=== PATIENT | female | born 1945 | race Caucasian/White ===

== ENCOUNTER 2017-07-07 10:56 | Outpatient (CLI) | payer MEDICARE, OTHER ==
--- NOTE | 2017-07-07 17:47 | XRAY Report ---
TWO-VIEW LEFT KNEE: 07/07/2017 CLINICAL INDICATION: Pain. FINDINGS: Frontal and lateral views of the left knee demonstrate mild osteoarthritis. There is no e vidence of acute fracture. No radiopaque foreign body is seen in the soft tissues. IMPRESSION: MILD OSTEOARTHRITIS. JOB #: [id number] EXT JOB #:[id number]
== END 2017-07-07 10:57 | disposition home or self-care (01) ==
LOC: DI 10:56
PROVIDERS: ATTEND Family Medicine
DX: M25.562 Pain in left knee (principal); M17.12 Unilateral primary osteoarthritis, left knee

== ENCOUNTER 2017-11-16 08:00 | Outpatient (CLI) | payer MEDICARE, OTHER ==
[2017-11-16 18:59] LABS: BASOPHILS # (AUTO) 0.1 10^3/uL (0.0-0.1); BASOPHILS % (AUTO) 1.2 %; EOSINOPHILS # (AUTO) 0.3 10^3/uL (0.0-0.7); HGB - HEMOGLOBIN 14.3 g/dL (12.0-16.0); LYMPHOCYTES # (AUTO) 2.1 10^3/uL (1.5-3.5); LYMPHOCYTES % (AUTO) 32.6 %; MEAN CORPUSCULAR HEMOGLOBIN 30.8 pg (27.0-31.0); MEAN CORPUSCULAR HGB CONC 32.5 g/dL (32.0-36.0); MEAN CORPUSCULAR VOLUME 94.7 fL (81.0-99.0); MEAN PLATELET VOLUME 8.2 fL (7.9-10.8); MONOCYTES # (AUTO) 0.7 10^3/uL (0.0-1.0); MONOCYTES % (AUTO) 10.9 %; NEUTROPHILS # (AUTO) 3.2 10^3/uL (1.5-6.6); NEUTROPHILS % (AUTO) 50.3 %; PLT - PLATELET COUNT 278 10^3/uL (130-450); RED BLOOD COUNT 4.66 10^6/uL (4.20-5.40); RED CELL DISTRIBUTION WIDTH 13.6 % (12.0-15.0); WHITE BLOOD COUNT 6.4 x10^3/uL (4.8-10.8)
[2017-11-16 19:08] LABS: ALBUMIN 4.3 g/dL (3.2-5.5); ALBUMIN/GLOBULIN RATIO 1.3 (1.0-2.2); ALKALINE PHOSPHATASE 61 IU/L (42-121); ALT ALANINE AMINOTRANSFERASE 15 IU/L (10-60); AST ASPARTATE AMINOTRANSFERASE 18 IU/L (10-42); BILIRUBIN,TOTAL 0.5 mg/dL (0.2-1.0); BUN - BLOOD UREA NITROGEN 26 mg/dL (6-20); CALCIUM 9.6 mg/dL (8.5-10.3); CARBON DIOXIDE - CO2 26 mmol/L (21-32); CHLORIDE 103 mmol/L (101-111); CREATININE 0.8 mg/dL (0.4-1.0); GFR - MDRD 70 (>89); GLUCOSE 83 mg/dL (70-100); SODIUM 138 mmol/L (135-145); TOTAL PROTEIN 7.5 g/dL (6.7-8.2)
== END 2017-11-16 08:01 | disposition home or self-care (01) ==
LOC: LAB.WCP 08:00
PROVIDERS: ATTEND Family Medicine
DX: R56.9 Unspecified convulsions (principal); I10 Essential (primary) hypertension
CPT/HCPCS: 36415; 80053; 84443; 85025

== ENCOUNTER 2019-08-10 13:42 | Outpatient (CLI) | payer MEDICARE, OTHER | END 2019-08-10 13:43 | disposition critical access hospital (66) | LOC: EMS 13:42 | PROVIDERS: ATTEND Surgery | DX: R53.1 Weakness (principal); R10.30 Lower abdominal pain, unspecified | CPT/HCPCS: A0425; A0429 ==

== ENCOUNTER 2019-08-10 14:01 | Emergency (ER) | payer MEDICARE, OTHER ==
[2019-08-10 14:37] LABS: BASOPHILS # (AUTO) 0.1 10^3/uL (0.0-0.1); BASOPHILS % (AUTO) 0.5 %; EOSINOPHILS # (AUTO) 0.2 10^3/uL (0.0-0.7); EOSINOPHILS % (AUTO) 1.6 %; HGB - HEMOGLOBIN 13.4 g/dL (12.0-16.0); LYMPHOCYTES # (AUTO) 1.1 10^3/uL (1.5-3.5); LYMPHOCYTES % (AUTO) 10.1 %; MEAN CORPUSCULAR HEMOGLOBIN 30.9 pg (27.0-31.0); MEAN CORPUSCULAR HGB CONC 33.1 g/dL (32.0-36.0); MEAN CORPUSCULAR VOLUME 93.3 fL (81.0-99.0); MONOCYTES # (AUTO) 1.2 10^3/uL (0.0-1.0); MONOCYTES % (AUTO) 10.9 %; NEUTROPHILS # (AUTO) 8.1 10^3/uL (1.5-6.6); NEUTROPHILS % (AUTO) 76.2 %; PLT - PLATELET COUNT 365 10^3/uL (130-450); RED BLOOD COUNT 4.34 10^6/uL (4.20-5.40); WHITE BLOOD COUNT 10.7 x10^3/uL (4.8-10.8)
[2019-08-10 14:41] LABS: ALBUMIN 3.2 g/dL (3.2-5.5); ALBUMIN/GLOBULIN RATIO 0.9 (1.0-2.2); CREATININE 0.8 mg/dL (0.4-1.0); TOTAL PROTEIN 6.8 g/dL (6.7-8.2)
[2019-08-10] MEDS ORDERED: SODIUM CHLORIDE 0.9% 1,000 ML IV ONE ×2 (14:55→19:42)
[2019-08-10] MEDS ORDERED: LORazepam 2 MG/ML VIAL IVP STA (14:55)
[2019-08-10] MEDS ORDERED: IOVERSOL 320 100 ML VIAL IVP ONE ×2 (14:59→15:32)
--- NOTE | 2019-08-10 15:59 | CT Report ---
Reason: RLQ abd pain Procedure Date: 08/10/2019 Accession Number: [id number] / [id number] Procedure: CT - Abdomen/Pelvis W CPT Code: FULL RESULT: EXAM: CT ABDOMEN AND PELVIS EXAM DATE: 08/10/2019 03:28 PM. CLINICAL HISTORY: RLQ abd pain. COMPARISONS: None. TECHNIQUE: Routine helical CT imaging was performed through the abdomen and pelvis. IV contrast: OPTI 320 90ML. Enteric contrast: No. Reconstructions: Coronal and sagittal. In accordance with CT protocol optimization, one or more of the following dose reduction techniques were utilized for this exam: automated exposure control, adjustment of mA and/or KV based on patient size, or use of iterative reconstructive technique. FINDINGS: Lung Bases: Unremarkable. Liver: Normal. No masses. Gallbladder/Bile Ducts: Unremarkable. Spleen: Normal. Pancreas: Normal. Adrenal Glands: Normal. Kidneys: There is a 1.6 cm cystic structure in the posterior cortex of left kidney likely to represent a simple cyst. No hydronephrosis. Peritoneal Cavity/Bowel: Diverticulitis of the sigmoid colon with contained perforation and abscess adjacent to the mid sigmoid colon just posterior to the uterus measuring at least 4.9 x 6.9 cm. The appendix is not visualized. Pelvic Organs: Normal. The bladder and visualized pelvic organs are within normal limits. Vasculature: No aneurysms or other significant abnormality. Bones: No significant abnormality. Other: None. IMPRESSION: Diverticulitis of the sigmoid colon with adjacent abscess measuring 6.9 x 4.9 cm. RADIA The critical result notification system was initiated by Dr. Angela Gutierrez at 03:55 PM on 08/10/2019. The above critical result findings were discussed with Richard Partida by Dr. Angela Gutierrez at 03:56 PM on 08/10/2019.
[2019-08-10] MEDS ORDERED: PIPERACILLIN/TAZOBACTAM 3.375 GM in SODIUM CHLORIDE 0.9% MINIBAG 100 ML IV STA (16:00)
[2019-08-10] MEDS ORDERED: metroNIDAZOLE 500 MG/100 ML 500 MG/100 ML BAG IV ONE (16:01)
[2019-08-10 16:17] LABS: BILIRUBIN,URINE NEGATIVE (NEGATIVE); GLUCOSE, URINE (UA) NEGATIVE (NEGATIVE); KETONES,URINE (UA) NEGATIVE (NEGATIVE); LEUKOCYTE ESTERASE, URINE NEGATIVE (NEGATIVE); NITRITE,URINE NEGATIVE (NEGATIVE); OCCULT BLOOD,URINE MODERATE (NEGATIVE); PROTEIN,URINE NEGATIVE (NEGATIVE); UROBILINOGEN,URINE 0.2 (NORMAL) E.U./dL (NORMAL)
[2019-08-10 16:20] LABS: CLARITY,URINE HAZY (CLEAR)
[2019-08-10 16:24] LABS: BACTERIA,URINE Rare /HPF (None Seen); MUCUS,URINE Few Strands; RBC,URINE 0-5 /HPF (0-5); SQUAMOUS EPITHELIAL CELL,UR RARE Squamous (<= Few)
[2019-08-10] MEDS ORDERED: MORPHINE 2 MG/ML CARPUJECT IVP STA ×2 (17:33→21:32)
--- NOTE | 2019-08-10 18:07 | ED Physician Documentation ---
PD HPI ABD PAIN - Stated complaint Stated Complaint: ABD PX - Chief complaint Chief Complaint: Abd Pain - History obtained from History obtained from: Patient - History of Present Illness Timing - onset: How many weeks ago (2) Timing - duration: Weeks (2) Timing - details: Gradual onset Pain level max: 10 Pain level now: 6 Quality: Aching, Pain Location: Other (lower abdomen) Radiation: Other (non-radiating) Improved by: Laying still Worsened by: Moving, Palpation Associated symptoms: Nausea, Constipation. No: Fever, Vomiting, Hematemesis, Diarrhea, Melena, Hematochezia, Dysuria, Hematuria, Chest pain Similar symptoms before: Has not had sx before Recently seen: Not recently seen (has not seen a doctor for years) Review of Systems Ten Systems: 10 systems reviewed and negative Constitutional: denies: Fever, Chills Ears: denies: Ear pain Nose: denies: Rhinorrhea / runny nose, Congestion Throat: denies: Sore throat Cardiac: denies: Chest pain / pressure Respiratory: denies: Cough : denies: Dysuria, Frequency, Hesitancy Skin: denies: Rash Musculoskeletal: denies: Neck pain, Back pain PD PAST MEDICAL HISTORY - Past Medical History Past Medical History: Yes Cardiovascular: CT - Past Surgical History 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, 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 - Present Medications Home Medications: Ambulatory Orders Medication Instructions Recorded Confirmed Ibuprofen 600 mg PO Q6H PRN #30 tablet 04/19/14 - Allergies Allergies/Adverse Reactions: Allergies Allergy/AdvReac Type Severity Reaction Status Date / Time No Known Drug Allergies Allergy Verified 08/10/19 14:09 - Social History Does the pt smoke?: No Smoking Status: Never smoker Does the pt drink ETOH?: No Does the pt have substance abuse?: No - Immunizations Immunizations are current?: No - POLST Patient has POLST: No PD ED PE NORMAL - Vitals Vital signs reviewed: Yes - General General: Alert and oriented X 3, No acute distress, Well developed/nourished - HEENT HEENT: PERRL, Moist mucous membranes - Neck Neck: Supple, no meningeal sign - Cardiac Cardiac: RRR, Strong equal pulses - Respiratory Respiratory: No respiratory distress, Clear bilaterally - Abdomen Abdomen: Soft, Non distended, Other (Diffusely tender to palpation across the lower abdomen. Positive rebound and guarding in the right lower quadrant) - Back Back: No spinal TTP - Derm Derm: Warm and dry - Extremities Extremities: No edema - Neuro Neuro: Alert and oriented X 3 - Psych Psych: Normal mood, Normal affect Results - Vitals Vitals: Vital Signs - 24 hr 08/10/19 08/10/19 08/10/19 14:02 14:15 16:09 Temperature 36.5 C Heart Rate 88 94 87 Respiratory 14 14 Rate Blood Pressure 157/92 H 160/81 H O2 Saturation 97 93 97 08/10/19 08/10/19 08/10/19 18:00 20:12 20:56 Temperature 36.9 C Heart Rate 85 85 83 Respiratory 24 16 Rate Blood Pressure 134/69 H 131/65 H 146/78 H O2 Saturation 97 96 93 08/10/19 21:56 Temperature Heart Rate 86 Respiratory 16 Rate Blood Pressure 128/89 H O2 Saturation 94 Oxygen O2 Source Room air - Labs Labs: Laboratory Tests 08/10/19 08/10/19 08/10/19 14:23 14:23 16:00 WBC 10.7 RBC 4.34 Hgb 13.4 Hct 40.5 MCV 93.3 MCH 30.9 MCHC 33.1 RDW 12.0 Plt Count 365 MPV 9.0 Neut # (Auto) 8.1 H Lymph # (Auto) 1.1 L [place] # (Auto) 1.2 H Eos # (Auto) 0.2 Baso # (Auto) 0.1 Absolute Nucleated RBC 0.00 Nucleated RBC % 0.0 Sodium 139 Potassium 3.2 L Chloride 103 Carbon Dioxide 26 Anion Gap 10.0 BUN 12 Creatinine 0.8 Estimated GFR (MDRD) 70 L Glucose 120 H Calcium 9.0 Total Bilirubin 1.0 AST 21 ALT 23 Alkaline Phosphatase 60 Total Protein 6.8 Albumin 3.2 Globulin 3.6 Albumin/Globulin Ratio 0.9 L Lipase 27 Urine Color YELLOW Urine Clarity HAZY Urine pH 7.0 Ur Specific [place] <=1.005 Urine Protein NEGATIVE Urine Glucose (UA) NEGATIVE Urine Ketones NEGATIVE Urine Occult Blood MODERATE H Urine Nitrite NEGATIVE Urine Bilirubin NEGATIVE Urine Urobilinogen 0.2 (NORMAL) Ur Leukocyte Esterase NEGATIVE Urine RBC 0-5 Urine WBC 4-5 Ur Squamous Epith Cells RARE Squamous Urine Bacteria Rare Urine Casts 3-5 Granular Casts Urine Mucus Few Strands Ur Microscopic Review INDICATED Urine Culture Comments NOT INDICATED - Rads (name of study) CT abd/pelvis Radiology: Prelim report reviewed, EMP read contemporaneously, See rad report (Diverticulitis of the sigmoid colon with adjacent abscess measuring 6.9 x 4.9 cm. ) PD MEDICAL DECISION MAKING - ED course Complexity details: reviewed results, re-evaluated patient, considered differential, d/w patient, d/w family ED course: 74-year-old female presents to the emergency department with perforated diverticulitis with an intra-abdominal abscess. Discussed the case with Dr. Medley and Dr. Jones, they recommend transfer to a facility who can perform IR drainage of this transrectally. Consulted Dr. Gonzalez from [facility] in [place], they do not have this capability. Spoke with Dr. Shelby Quick, general surgery at [facility] who graciously accepts in transfer at 1900. Patient was maintained on Zosyn and Flagyl. COBRA forms completed This document was made in part using voice recognition software. While efforts are made to proofread this document, sound alike and grammatical errors may occur. Departure - Departure Disposition: 02 Transfer Acute Care Hosp Clinical Impression: Abscess of sigmoid colon due to diverticulitis Condition: Stable
[2019-08-10 21:57] VITALS: BP 128/89
== END 2019-08-10 22:02 | disposition short-term general hospital (02) ==
LOC: ED 14:01
DX: K57.20 Diverticulitis of large intestine with perforation and abscess without bleeding (principal)
CPT/HCPCS: 36415; 74177; 80053; 81001; 83690; 85025; 96361; 96365; 96367; 96375; 96376; 99285; J2060; Q9967; 81003; 87086

== ENCOUNTER 2019-08-25 11:37 | Outpatient (CLI) | payer MEDICARE, OTHER ==
[2019-08-25] MEDS ORDERED: IOVERSOL 320 50 ML VIAL ONE (12:23)
[2019-08-25] MEDS ORDERED: IOVERSOL 320 100 ML VIAL IVP ONE ×2 (12:23→13:20)
[2019-08-25] MEDS ORDERED: IOVERSOL 320 50 ML VIAL PO ONE (13:20)
--- NOTE | 2019-08-26 15:01 | CT Report ---
Reason: COLONIC DIVERTICULAR ABSCESS Procedure Date: 08/25/2019 Accession Number: [id number] / [id number] Procedure: CT - Abdomen/Pelvis W CPT Code: Final Report FULL RESULT: EXAM: CT ABDOMEN AND PELVIS EXAM DATE: 08/25/2019 01:18 PM. CLINICAL HISTORY: Reassess colonic diverticular abscess. COMPARISONS: CT of the abdomen and pelvis from 08/10/2019. TECHNIQUE: Routine helical CT imaging was performed through the abdomen and pelvis. IV contrast: 90 cc Optiray 320. Enteric contrast: Yes. Reconstructions: Coronal and sagittal. In accordance with CT protocol optimization, one or more of the following dose reduction techniques were utilized for this exam: automated exposure control, adjustment of mA and/or KV based on patient size, or use of iterative reconstructive technique. FINDINGS: Lung Bases: The visualized portions of the lung bases are clear. There is a small hiatal hernia. Liver: There is focal fat deposition along the fissure for the ligamentum teres. Otherwise unremarkable. Gallbladder/Bile Ducts: There is a 10 mm ovoid density in the gallbladder (series 3, image 29), which may represent a stone or polyp. Caliber of the bile ducts is within normal limits. Spleen: Unremarkable. Pancreas: Unremarkable. Adrenal Glands: No nodules. Kidneys: A cyst is present in the lower pole of the left kidney (series 3, image 33). No hydronephrosis. Peritoneal Cavity/Bowel: Anterior to the distal sigmoid colon/high rectum, there is a collection of fluid and gas measuring approximately 2.6 x 1.6 x 3.8 cm (series 3, image 63 and series 6, image 42). This is significantly decreased in size from dimensions of 6.9 x 4.9 x 5.2 cm on the prior examination. There is mild haziness of the surrounding fat. There is scattered colonic diverticulosis, greatest in the sigmoid colon. No evidence of bowel obstruction. Pelvic Organs: Perirectal/pericolonic abscess, as described above. Urinary bladder is unremarkable. Uterus is within normal limits. There appears to be a small amount of nonspecific fluid adjacent to the right ovary (series 3, images 58-62). No pelvic adenopathy. Vasculature: There is moderate atherosclerotic calcification of the abdominal aorta. No abdominal aortic aneurysm. Atherosclerotic calcification extends into bilateral iliac arteries. 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 Bones: No suspicious osseous lesion. There are multilevel degenerative changes in the spine with grade 1 anterolisthesis at L5-S1. Other: None. IMPRESSION: 1. Significantly decreased size of abscess anterior to the distal sigmoid colon/high rectum, now measuring 3.8 cm. Mild surrounding fat stranding is demonstrated, suggesting mild ongoing inflammation. 2. 10 mm gallstone versus gallbladder polyp. Follow-up with abdominal ultrasound is recommended. RADIA
== END 2019-08-25 11:38 | disposition home or self-care (01) ==
LOC: DI 11:37
PROVIDERS: ATTEND Nurse Practitioner Acute Care
DX: K57.20 Diverticulitis of large intestine with perforation and abscess without bleeding (principal); K82.9 Disease of gallbladder, unspecified
CPT/HCPCS: 74177; Q9967

== ENCOUNTER 2019-09-13 10:57 | Outpatient (CLI) | payer MEDICARE, OTHER ==
[2019-09-13] MEDS ORDERED: IOVERSOL 320 50 ML VIAL ONE (11:09)
[2019-09-13] MEDS ORDERED: IOVERSOL 320 100 ML VIAL IVP ONE ×2 (11:09→14:36)
[2019-09-13 11:28] LABS: BASOPHILS # (AUTO) 0.1 10^3/uL (0.0-0.1); BASOPHILS % (AUTO) 0.7 %; EOSINOPHILS # (AUTO) 0.1 10^3/uL (0.0-0.7); HGB - HEMOGLOBIN 12.9 g/dL (12.0-16.0); LYMPHOCYTES # (AUTO) 1.2 10^3/uL (1.5-3.5); LYMPHOCYTES % (AUTO) 13.7 %; MEAN CORPUSCULAR HEMOGLOBIN 30.1 pg (27.0-31.0); MEAN CORPUSCULAR HGB CONC 32.3 g/dL (32.0-36.0); MEAN CORPUSCULAR VOLUME 93.2 fL (81.0-99.0); MEAN PLATELET VOLUME 8.7 fL (7.9-10.8); MONOCYTES # (AUTO) 0.9 10^3/uL (0.0-1.0); MONOCYTES % (AUTO) 9.5 %; NEUTROPHILS # (AUTO) 6.7 10^3/uL (1.5-6.6); NEUTROPHILS % (AUTO) 74.7 %; PLT - PLATELET COUNT 343 10^3/uL (130-450); RED BLOOD COUNT 4.28 10^6/uL (4.20-5.40); RED CELL DISTRIBUTION WIDTH 13.8 % (12.0-15.0); WHITE BLOOD COUNT 8.9 x10^3/uL (4.8-10.8)
[2019-09-13 11:53] LABS: BILIRUBIN,TOTAL 0.4 mg/dL (0.2-1.0); CALCIUM 9.8 mg/dL (8.5-10.3); CREATININE 0.6 mg/dL (0.4-1.0)
[2019-09-13 11:54] LABS: ALBUMIN 3.8 g/dL (3.2-5.5); TOTAL PROTEIN 7.7 g/dL (6.7-8.2)
--- NOTE | 2019-09-13 13:37 | CT Report ---
Reason: COLONIC DIVERTICULAR ABSCESS, DIVERTICULITIS COLON Procedure Date: 09/13/2019 Accession Number: [id number] / [id number] Procedure: CT - Abdomen/Pelvis W CPT Code: Final Report FULL RESULT: EXAM: CT ABDOMEN AND PELVIS EXAM DATE: 09/13/2019 12:40 PM. CLINICAL HISTORY: COLONIC DIVERTICULAR ABSCESS, DIVERTICULITIS COLON. COMPARISONS: ABDOMEN/PELVIS W/ 08/25/2019 1:13 PM ABDOMEN/PELVIS W/ 08/10/2019 3:24 PM. TECHNIQUE: Routine helical CT imaging was performed through the abdomen and pelvis. IV contrast: OPTI 320 100ML. Enteric contrast: Yes. Reconstructions: Coronal and sagittal. In accordance with CT protocol optimization, one or more of the following dose reduction techniques were utilized for this exam: automated exposure control, adjustment of mA and/or KV based on patient size, or use of iterative reconstructive technique. FINDINGS: Lung Bases: Unremarkable. Liver: Stable appearance with no new mass or ductal dilation. Gallbladder/Bile Ducts: Stable appearance of the gallbladder, including approximate 10 mm ovoid density (image 28, series 4). No biliary ductal dilation. Spleen: Unremarkable. Pancreas: Unremarkable. Adrenal Glands: Unremarkable. Kidneys: Stable appearance with symmetric enhancement and no hydronephrosis. A few probable small cysts again noted. Peritoneal Cavity/Bowel: No bowel obstruction identified. Increased thickening throughout the sigmoid colon and rectum since the prior study with mild increased pericolonic inflammatory change. The previous small abscess anterior to the distal sigmoid colon/high rectum is less well delineated. No new drainable collection is visualized. Multiple colonic diverticula also again noted, including through the sigmoid region. No free air. No bulky adenopathy. Possible small hiatal hernia. Pelvic Organs: Urinary bladder is incompletely distended, although appears to be unremarkable. Uterus appears unremarkable. Small amount of fluid adjacent to the right ovary again noted. Vasculature: Stable. Bones: Stable. Other: None. IMPRESSION: 1. The previous small abscess located anterior to the distal sigmoid colon/high rectum is less well delineated and may be nearly resolved. No new drainable collection is visualized. 2. Increased colonic thickening and mild pericolonic inflammatory change throughout the rectosigmoid region since the prior study. 3. No bowel obstruction or free air identified. 4. Other findings again noted, as described above. RADIA The call report initiated by Dr. Manny Nelson at 01:35 PM on 09/13/2019.
[2019-09-13] MEDS ORDERED: IOVERSOL 320 50 ML VIAL PO ONE (14:36)
== END 2019-09-13 10:58 | disposition home or self-care (01) ==
LOC: DI 10:57
PROVIDERS: ATTEND Family Medicine
DX: K57.20 Diverticulitis of large intestine with perforation and abscess without bleeding (principal); K57.30 Diverticulosis of large intestine without perforation or abscess without bleeding
CPT/HCPCS: 36415; 74177; 80053; 85025; Q9967

== ENCOUNTER 2020-07-18 14:54 | Outpatient (CLI) | payer MEDICARE, OTHER ==
--- NOTE | 2020-07-18 16:32 | XRAY Report ---
PROCEDURE: Ribs w/PA Chest RT INDICATIONS: RIGHT SIDE RIB PAIN TECHNIQUE: 3 views of the right ribs were acquired, along with a single view chest. COMPARISON: 04/19/2014 FINDINGS: Surgical changes and devices: None. Bones and chest wall: The bones are diffusely osteopenic. No fractures or dislocations. No suspiciou s bony lesions. Overlying soft tissues appear unremarkable. Lungs and pleura: No pleural effusions or pneumothorax. Lungs appear clear. Mediastinum: Mediastinal contours appear normal. Heart size is normal. IMPRESSION: No evidence of displaced right rib fracture. No evidence of acute pulmonary process. Reviewed by: Ced Gruber MD on 07/18/2020 4:31 PM PDT Approved by: Ced Gruber MD on 07/18/2020 4:31 PM PDT Station ID: [id number]
[2020-07-18 18:33] LABS: ALBUMIN 4.3 g/dL (3.2-5.5); ALBUMIN/GLOBULIN RATIO 1.3 (1.0-2.2); BILIRUBIN,TOTAL 1.2 mg/dL (0.2-1.0); CALCIUM 9.6 mg/dL (8.5-10.3); CREATININE 0.7 mg/dL (0.4-1.0); TOTAL PROTEIN 7.5 g/dL (6.7-8.2)
[2020-07-18 18:35] LABS: BASOPHILS # (AUTO) 0.1 10^3/uL (0.0-0.1); BASOPHILS % (AUTO) 0.8 %; EOSINOPHILS # (AUTO) 0.3 10^3/uL (0.0-0.7); EOSINOPHILS % (AUTO) 4.6 %; HGB - HEMOGLOBIN 13.8 g/dL (12.0-16.0); LYMPHOCYTES # (AUTO) 1.7 10^3/uL (1.5-3.5); LYMPHOCYTES % (AUTO) 27.1 %; MEAN CORPUSCULAR HEMOGLOBIN 30.4 pg (27.0-31.0); MEAN CORPUSCULAR HGB CONC 32.2 g/dL (32.0-36.0); MEAN CORPUSCULAR VOLUME 94.3 fL (81.0-99.0); MEAN PLATELET VOLUME 9.6 fL (7.9-10.8); MONOCYTES # (AUTO) 0.5 10^3/uL (0.0-1.0); MONOCYTES % (AUTO) 8.9 %; NEUTROPHILS # (AUTO) 3.6 10^3/uL (1.5-6.6); NEUTROPHILS % (AUTO) 58.4 %; PLT - PLATELET COUNT 261 10^3/uL (130-450); RED BLOOD COUNT 4.54 10^6/uL (4.20-5.40); RED CELL DISTRIBUTION WIDTH 13.1 % (12.0-15.0); WHITE BLOOD COUNT 6.1 x10^3/uL (4.8-10.8)
== END 2020-07-18 14:55 | disposition home or self-care (01) ==
LOC: DI.WCP 14:54
PROVIDERS: ATTEND Family Medicine
DX: R07.81 Pleurodynia (principal); K62.5 Hemorrhage of anus and rectum
CPT/HCPCS: 36415; 80053; 85025

== ENCOUNTER 2022-07-31 08:00 | Outpatient (CLI) | payer MEDICARE, OTHER ==
[2022-07-31 13:04] LABS: AMYLASE 63 U/L (28-100); CHOL/HDL RATIO 3.2 (<4.4); CHOLESTEROL 247 mg/dL; HDL CHOLESTEROL 78 mg/dL; LDL CHOLESTEROL,CALCULATED 158 mg/dL; LIPASE 33 U/L (22-51); TRIGLYCERIDES 57 mg/dL; VLDL CHOLESTEROL 11 mg/dL
[2022-07-31 13:13] LABS: THYROID STIMULATING HORMONE 2.65 uIU/mL (0.34-5.60)
== END 2022-07-31 23:59 | disposition home or self-care (01) ==
LOC: LAB 08:00
PROVIDERS: ATTEND Nurse Practitioner
DX: E78.5 Hyperlipidemia, unspecified (principal); R10.31 Right lower quadrant pain; R06.02 Shortness of breath
CPT/HCPCS: 36415; 80061; 82150; 83690; 83721; 83880; 84443

== ENCOUNTER 2022-07-31 10:50 | Outpatient (CLI) | payer MEDICARE, OTHER | END 2022-07-31 10:51 | disposition critical access hospital (66) | LOC: EMS 10:50 | DX: R07.89 Other chest pain (principal) | CPT/HCPCS: A0425; A0429 ==

== ENCOUNTER 2022-07-31 11:27 | Emergency (ER) | payer MEDICARE, OTHER ==
--- NOTE | 2022-07-31 11:37 | ED Physician Documentation ---
PD HPI CHEST PAIN - Stated complaint Stated Complaint: CHEST PX - History obtained from History obtained from: Patient - History of Present Illness Timing - onset: Yesterday - Additional information Additional information: 77-year-old female with history of hypertension presents by EMS from her primary care doctor's office for evaluation of substernal chest pressure since last night. Patient states that last night when she was laying down for bed she felt a tightness in her chest. She turned over onto her side and she felt a "pop" in her right shoulder, and the pressure relieved itself. Today she was at her primary care doctor's office for her blood pressure, she mentioned the chest tightness to her doctor who performed an EKG. EKG at that time reportedly had ST elevations in V1 and V2 and so she was sent in for ACS rule out. She was given 324 of aspirin in route by EMS. On arrival patient stated she still felt a mild substernal chest pressure. It seems to come and go with no real cause. Nothing really makes it better or worse Review of Systems Ten Systems: 10 systems reviewed and negative Constitutional: denies: Fever, Chills Cardiac: reports: Chest pain / pressure. 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 - Present Medications Home Medications: Ambulatory Orders Medication Instructions Recorded Confirmed Ibuprofen 600 mg PO Q6H PRN #30 tablet 04/19/14 - Allergies Allergies/Adverse Reactions: Allergies Allergy/AdvReac Type Severity Reaction Status Date / Time No Known Drug Allergies Allergy Verified 08/10/19 14:09 - Social History Does the pt smoke?: No Smoking Status: Never smoker Does the pt drink ETOH?: No Does the pt have substance abuse?: No - Immunizations Immunizations are current?: No - POLST Patient has POLST: No PD ED PE NORMAL - Vitals Vital signs reviewed: Yes - General General: Alert and oriented X 3, No acute distress, Well developed/nourished - HEENT HEENT: Atraumatic, PERRL, EOMI - Neck Neck: Supple, no meningeal sign, No bony TTP, C-Spine cleared by NEXUS criteria - Cardiac Cardiac: RRR, No murmur, Strong equal pulses - Respiratory Respiratory: No respiratory distress, Clear bilaterally - Abdomen Abdomen: Soft, Non tender, Non distended - Back Back: No CVA TTP, No spinal TTP - Derm Derm: Normal color, Warm and dry, No rash - Extremities Extremities: No deformity, No tenderness to palpate, Normal ROM s pain, No edema - Neuro Neuro: Alert and oriented X 3, 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1 Neut # (Auto) 3.5 Lymph # (Auto) 1.5 [place] # (Auto) 0.5 Eos # (Auto) 0.2 Baso # (Auto) 0.1 Absolute Nucleated RBC 0.00 Nucleated RBC % 0.0 PT 13.3 H INR 1.2 Sodium 138 Potassium 4.4 Chloride 102 Carbon Dioxide 28 Anion Gap 8.0 BUN 27 H Creatinine 0.8 Estimated GFR (MDRD) 69 L Glucose 91 Calcium 9.4 Total Bilirubin 0.8 AST 19 ALT 12 Alkaline Phosphatase 92 Troponin I High Sens Total Protein 7.4 Albumin 4.3 Globulin 3.1 Albumin/Globulin Ratio 1.4 07/31/22 12:16 WBC RBC Hgb Hct MCV MCH MCHC RDW Plt Count MPV Neut # (Auto) Lymph # (Auto) [place] # (Auto) Eos # (Auto) Baso # (Auto) Absolute Nucleated RBC Nucleated RBC % PT INR Sodium Potassium Chloride Carbon Dioxide Anion Gap BUN Creatinine Estimated GFR (MDRD) Glucose Calcium Total Bilirubin AST ALT Alkaline Phosphatase Troponin I High Sens 6.2 Total Protein Albumin Globulin Albumin/Globulin Ratio PD MEDICAL DECISION MAKING - ED course Complexity details: reviewed results, re-evaluated patient, considered differential, d/w patient ED course: 77-year-old female presenting for evaluation of chest pressure, possible abnormal EKG at primary care office. I reviewed the EKG sent in by primary care, there is no evidence of ST elevations, it appears to be a normal EKG. EKG by EMS also appears to be normal. Patient is resting comfortably in ED bed, in no acute distress, vital signs are within normal limits. Labs reviewed, EKG normal sinus rhythm without ischemic findings, high- sensitivity troponin is within normal limits. Patient states her chest pressure has resolved and she is eager to go home. She was counseled to follow-up with her primary care doctor and her core maker helper as needed. Strict ED return precautions advised Departure - Departure Disposition: 01 Home, Self Care Clinical Impression: Chest pain Condition: Stable Instructions: ED Chest Pain Atypical Unkn Cause Comments: You are sent in today to check your heart enzymes. Your EKG, chest x-ray, and blood work are all normal. I do not know why you are having chest pain, but at this time it does not appear as though you are having a heart attack. I recommend follow-up with your core maker helper as well as your primary care physician. Discharge Date/Time: 07/31/22 13:45
--- NOTE | 2022-07-31 11:57 | XRAY Report ---
PROCEDURE: Chest 1 View X-Ray INDICATIONS: chest pain TECHNIQUE: One view of the chest was acquired. COMPARISON: 07/18/2020 FINDINGS: Surgical changes and devices: Metallic pin projects over the right humeral head. Lungs and pleura: Lung volumes are low. No consolidation or pneumothorax. Mediastinum: Mediastinal contours appear normal. Heart size is normal. Bones and chest wall: No suspicious bony lesions. Overlying soft tissues appear unremarkable. IMPRESSION: Low lung volumes. No acute radiographic process in the chest Reviewed by: Efra Gutierrez MD on 07/31/2022 11:56 AM PDT Approved by: Efra Gutierrez MD on 07/31/2022 11:56 AM PDT Station ID: [id number]
[2022-07-31 12:21] LABS: BASOPHILS # (AUTO) 0.1 10^3/uL (0.0-0.1); BASOPHILS % (AUTO) 0.9 %; EOSINOPHILS # (AUTO) 0.2 10^3/uL (0.0-0.7); HCT - HEMATOCRIT 43.8 % (37.0-47.0); HGB - HEMOGLOBIN 14.3 g/dL (12.0-16.0); LYMPHOCYTES # (AUTO) 1.5 10^3/uL (1.5-3.5); LYMPHOCYTES % (AUTO) 25.6 %; MEAN CORPUSCULAR HEMOGLOBIN 31.5 pg (27.0-31.0); MEAN CORPUSCULAR HGB CONC 32.6 g/dL (32.0-36.0); MEAN CORPUSCULAR VOLUME 96.5 fL (81.0-99.0); MEAN PLATELET VOLUME 10.1 fL (7.9-10.8); MONOCYTES # (AUTO) 0.5 10^3/uL (0.0-1.0); MONOCYTES % (AUTO) 9.1 %; NEUTROPHILS # (AUTO) 3.5 10^3/uL (1.5-6.6); NEUTROPHILS % (AUTO) 61.2 %; PLT - PLATELET COUNT 221 10^3/uL (130-450); RED BLOOD COUNT 4.54 10^6/uL (4.20-5.40); RED CELL DISTRIBUTION WIDTH 12.8 % (12.0-15.0); WHITE BLOOD COUNT 5.7 x10^3/uL (4.8-10.8)
[2022-07-31 12:28] LABS: INR 1.2 (0.8-1.2); PT - PROTHROMBIN TIME 13.3 secs (9.9-12.6)
[2022-07-31 12:32] VITALS: BP 171/63
[2022-07-31 12:34] LABS: ALBUMIN 4.3 g/dL (3.2-5.5); ALBUMIN/GLOBULIN RATIO 1.4 (1.0-2.2); BILIRUBIN,TOTAL 0.8 mg/dL (0.2-1.0); CALCIUM 9.4 mg/dL (8.5-10.3); CREATININE 0.8 mg/dL (0.4-1.0); POTASSIUM 4.4 mmol/L (3.5-5.0); TOTAL PROTEIN 7.4 g/dL (6.7-8.2)
== END 2022-07-31 13:45 | disposition home or self-care (01) ==
LOC: EDUNIT# → ED 11:27
DX: R07.89 Other chest pain (principal); I10 Essential (primary) hypertension; I25.2 Old myocardial infarction; E78.5 Hyperlipidemia, unspecified; R10.31 Right lower quadrant pain; R06.02 Shortness of breath
CPT/HCPCS: 36415; 80053; 80061; 82150; 83690; 83721; 83880; 84443; 84484; 85025; 85610; 93005; 99284; 99285

== ENCOUNTER 2024-12-01 12:16 | Inpatient (IN) ==
[2024-12-01] MEDS: SODIUM CHLORIDE 0.9% 1,000 ML IV STA (12:46)
[2024-12-01 12:49] LABS: BASOPHILS # (AUTO) 0.1 10^3/uL (0.0-0.1); BASOPHILS % (AUTO) 0.4 %; EOSINOPHILS % (AUTO) 0.1 %; HCT - HEMATOCRIT 52.9 % (37.0-47.0); HGB - HEMOGLOBIN 17.6 g/dL (12.0-16.0); LYMPHOCYTES # (AUTO) 0.8 10^3/uL (1.5-3.5); LYMPHOCYTES % (AUTO) 6.1 %; MEAN CORPUSCULAR HGB CONC 33.3 g/dL (32.0-36.0); MEAN CORPUSCULAR VOLUME 93.3 fL (81.0-99.0); MEAN PLATELET VOLUME 10.4 fL (7.9-10.8); MONOCYTES # (AUTO) 1.5 10^3/uL (0.0-1.0); MONOCYTES % (AUTO) 11.5 %; NEUTROPHILS # (AUTO) 10.2 10^3/uL (1.5-6.6); NEUTROPHILS % (AUTO) 79.6 %; PLT - PLATELET COUNT 333 10^3/uL (130-450); RED BLOOD COUNT 5.67 10^6/uL (4.20-5.40); RED CELL DISTRIBUTION WIDTH 13.3 % (12.0-15.0); WHITE BLOOD COUNT 12.8 x10^3/uL (4.8-10.8)
--- NOTE | 2024-12-01 12:52 | ED Physician Documentation ---
History of Present Illness Stated complaint Stated Complaint: FOUND DOWN Chief complaint Chief Complaint: Abd Pain History obtained from History obtained from: Patient Additonal information Additional information: Patient is an 79-year-old female who states that she had a ground-level fall at home on Wednesday. She has been unable to pick herself up off of the floor since that time. Lives alone. A welfare check came to check on her today and found her on the ground. She has been lying on the left side of her face and there is a pressure wound to the left forehead. She states everything hurts but nothing hurts in particular. No fevers, cough, congestion. No nausea or vomiting. She states she does not take any medications at home. Does not believe she lost consciousness. Is unsure why she fell. No chest pain or shortness of breath. Meds/Allgy Home Medications Ambulatory Orders Medication Instructions Recorded Confirmed ibuprofen 600 mg tablet 600 mg PO Q6H PRN pain #30 tabs 04/19/14 Allergies Allergies Allergy/AdvReac Type Severity Reaction Status Date / Time acetaminophen (From NyQuil) Allergy Severe Unknown Verified 12/01/24 12:25 dextromethorphan (From Allergy Severe Unknown Verified 12/01/24 12:25 NyQuil) doxylamine (From NyQuil) Allergy Severe Unknown Verified 12/01/24 12:25 pseudoephedrine (From NyQuil) Allergy Severe Unknown Verified 12/01/24 12:25 [facility] Social History Social History Smoking Status: Former smoker Level: Independent Do you feel safe in your home environment?: Yes Suffered physical, verbal, emotional, or financial abuse?: No History of Abuse: No POLST Patient has POLST: No Exam Constitutional Disheveled female, smells strongly of urine HENMT No scalp hematomas or palpable skull fractures. There is erythema and swelling to the left forehead with what appears to be a pressure induced wound, there is debris in the wound. The left eyelid is swollen shut, when pried open, vision is normal and pupil is normal. Eyes PERRL, EOMs intact bilaterally and conjunctivae normal Neck/C-Spine visual inspection normal, trachea midline and supple Chest Small light bruising over the anterior chest. No crepitus. Respiratory breath sounds equal bilaterally and normal respiratory effort Cardiovascular normal heart rate noted and regular rhythm noted Gastrointestinal abdomen normal to inspection and abdomen soft to palpation mild generalized TTP, without focal tenderness or peritoneal signs Genitourinary no CVA tenderness Back/Pelvis spine normal to inspection, no thoracic spine tenderness and no lumbar spine t enderness No midline tenderness palpation or percussion. No step-off or deformity. mild generalized tenderness across the back. Extremities pain with ROM of both hips. 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 Relevant findings are: Rate: Other (83 bpm. Sinus rhythm. Occasional ventricular bigeminy. Likely LVH. No ST changes. No peaked T waves. ) Labs Labs: Laboratory Tests 12/01/24 12/01/24 12/01/24 12:43 12:53 13:14 WBC 12.8 H RBC 5.67 H Hgb 17.6 H Hct 52.9 H MCV 93.3 MCH 31.0 MCHC 33.3 RDW 13.3 Plt Count 333 MPV 10.4 Neut # (Auto) 10.2 H Lymph # (Auto) 0.8 L Bacon # (Auto) 1.5 H Eos # (Auto) 0.0 Baso # (Auto) 0.1 Absolute Nucleated RBC 0.00 Nucleated RBC % 0.0 Sodium 145 Potassium 5.2 H Chloride 108 Carbon Dioxide 20 L Anion Gap 17.0 H BUN 183 H* Creatinine 3.5 H Estimated GFR (MDRD) 13 L Glucose 114 H POC Whole Bld Glucose 118 Calcium 9.2 Magnesium 3.3 H Total Bilirubin 1.0 AST 35 ALT 31 Alkaline Phosphatase 79 Total Creatine Kinase 252 H Total Protein 6.8 Albumin 3.5 Globulin 3.3 Albumin/Globulin Ratio 1.1 Lipase 85 H TSH 3.31 Urine Color YELLOW Urine Clarity SL. CLOUDY Urine pH 5.5 Ur Specific Goodwell 1.025 Urine Protein TRACE Urine Glucose (UA) NEGATIVE Urine Ketones NEGATIVE Urine Occult Blood MODERATE H Urine Nitrite NEGATIVE Urine Bilirubin SMALL H Urine Urobilinogen 0.2 (NORMAL) Ur Leukocyte Esterase MODERATE H Urine RBC 0-5 Urine WBC >25 H Urine WBC Clumps PRESENT Ur Squamous Epith Cells MANY Squamous H Urine Bacteria Many H Ur Microscopic Review INDICATED Urine Culture Comments NOT INDICATED Salicylates < 1.5 Urine Opiates Screen NEGATIVE Ur Buprenorphine Scrn NEGATIVE Ur Oxycodone Screen NEGATIVE Urine Methadone Screen NEGATIVE Acetaminophen 0.2 Ur Barbiturates Screen NEGATIVE Ur Tricyclics Screen NEGATIVE Ur Phencyclidine Scrn NEGATIVE Ur Amphetamine Screen NEGATIVE U Methamphetamines Scrn NEGATIVE U Benzodiazepines Scrn NEGATIVE Urine Cocaine Screen NEGATIVE U Cannabinoids Screen NEGATIVE Ur Drug Screen Comment CUTOFF CONC BELOW: Ethyl Alcohol < 10.0 PD Medical Decision Making ED course Complexity details: reviewed results, re-evaluated patient, considered differential, d/w patient and d/w pci security consultant ED course: 79-year-old female lives at home alone, apparently fell 3 days ago, has been on the ground since that time unable to get up. A welfare check found her on the ground, has a wound to the left upper forehead. This was cleansed and bandaged. No acute findings on head CT, cervical spine CT, maxillofacial CT, abdomen pelvis CT. Chest CT does show 2 rib fractures, possibly acute. Discussed the case with Dr. Wong, general surgery who will consult on the patient. Also discussed with Dr. Castro, hospitalist who accepts for admission. Appears to have acute renal failure and significant uremia. Likely secondary to severe dehydration from being on the ground for 3 days. Altered mental status as well, likely from the uremia. Patient will be admitted for further care. This document was made in part using voice recognition software. While efforts are made to proofread this document, sound alike and grammatical errors may occur. Discharge Plan Discharge Patient Disposition: [facility] DC/Xfer Condition: Stable Clinical Impression: Acute kidney insufficiency, Acute uremia, Closed rib fracture, Acute dehydration Interventions: ED Admission Assessment Last Done: 12/01/24 15:17
[2024-12-01 13:07] LABS: ACETAMINOPHEN 0.2 ug/mL; CK- CREATINE KINASE 252 IU/L (30-223); ETOH - ETHANOL < 10.0 mg/dL; LIPASE 85 U/L (11-82)
[2024-12-01 13:20] LABS: THYROID STIMULATING HORMONE 3.31 uIU/mL (0.34-5.60)
[2024-12-01 13:34] LABS: ALBUMIN 3.5 g/dL (3.2-5.5); ALBUMIN/GLOBULIN RATIO 1.1 (1.0-2.2); ALKALINE PHOSPHATASE 79 IU/L (42-121); ALT ALANINE AMINOTRANSFERASE 31 IU/L (10-60); AST ASPARTATE AMINOTRANSFERASE 35 IU/L (10-42); CALCIUM 9.2 mg/dL (8.5-10.3); CARBON DIOXIDE - CO2 20 mmol/L (21-32); CHLORIDE 108 mmol/L (101-111); CREATININE 3.5 mg/dL (0.6-1.3); GFR - MDRD 13 (>89); GLUCOSE 114 mg/dL (74-104); MAGNESIUM 3.3 mg/dL (1.7-2.3); POTASSIUM 5.2 mmol/L (3.5-4.5); SALICYLATE < 1.5 mg/dL; SODIUM 145 mmol/L (135-145); TOTAL PROTEIN 6.8 g/dL (6.4-8.9)
--- NOTE | 2024-12-01 13:50 | CT Report ---
PROCEDURE: CT Head WO INDICATIONS: fall, on ground x 3days, pain TECHNIQUE: Noncontrast 4.5 mm thick angled axial sections acquired from the foramen magnum to the vertex. For r adiation dose reduction, the following was used: automated exposure control, adjustment of mA and/or kV according to patient size. COMPARISON: None. FINDINGS: Image quality: Excellent. CSF spaces: Basal cisterns are patent. No extra-axial fluid collections. Ventricles are normal in size and shape. Brain: No midline shift. No intracranial masses or hemorrhage. Ortez-white matter interface is norm al. Intracranial carotid calcifications. Age-related volume loss and moderate to severe small vessel ischemic change. Old lacunar infarctions. Skull and face: Calvarium and visualized facial bones are intact, without suspicious lesions. Sinuses: Visualized sinuses and mastoids are clear. IMPRESSION: Old infarcts, moderate to severe small vessel ischemic change. No acute intracranial process identifi ed. Comment: If clinically suspect acute stroke, consider brain MRI. Reviewed by: Ced Gruber MD on 12/01/2024 1:48 PM PST Approved by: Ced Gruber MD on 12/01/2024 1:48 PM PST Station ID: [id number]
[2024-12-01 13:52] LABS: BUN - BLOOD UREA NITROGEN 183 mg/dL (6-20)
[2024-12-01 13:52] LABS: BILIRUBIN,URINE SMALL (NEGATIVE); GLUCOSE, URINE (UA) NEGATIVE (NEGATIVE); KETONES,URINE (UA) NEGATIVE (NEGATIVE); LEUKOCYTE ESTERASE, URINE MODERATE (NEGATIVE); NITRITE,URINE NEGATIVE (NEGATIVE); OCCULT BLOOD,URINE MODERATE (NEGATIVE); PH,URINE 5.5 PH (5.0-7.5); PROTEIN,URINE TRACE mg/dL (NEGATIVE); UROBILINOGEN,URINE 0.2 (NORMAL) E.U./dL (NORMAL)
[2024-12-01 13:53] LABS: CLARITY,URINE SL. CLOUDY (CLEAR)
--- NOTE | 2024-12-01 13:57 | CT Report ---
PROCEDURE: CT Cervical Spine WO INDICATIONS: fall, on ground x 3days, pain TECHNIQUE: Noncontrast 3 mm thick sections acquired from the skull base to the T4 level. Sagittal and coronal r eformats were then constructed. For radiation dose reduction, the following was used: automated exp osure control, adjustment of mA and/or kV according to patient size. COMPARISON: None. FINDINGS: Image quality: Excellent. Bones: No fractures or dislocations. Diffuse cervical spondylitic change. Posterior disc osteophyte complex results in canal stenosis at C4-C5 and C5-C6. There is multilevel bilateral foraminal narrowi ng. Visualized superior ribs are intact. Soft tissues: Prevertebral soft tissues are normal in thickness. No paravertebral hematomas. No ap ical pneumothoraces. IMPRESSION: No acute, displaced fracture or traumatic subluxation. Cervical spondylosis with multilevel bony foraminal narrowing and multilevel canal stenosis. Reviewed by: Ced Gruber MD on 12/01/2024 1:55 PM PST Approved by: Ced Gruber MD on 12/01/2024 1:55 PM PST Station ID: [id number]
[2024-12-01 14:01] LABS: AMPHETAMINE SCREEN,URINE NEGATIVE (NEGATIVE); BARBITURATE SCREEN,UR NEGATIVE (NEGATIVE); BENZODIAZEPINES SCREEN, URINE NEGATIVE (NEGATIVE); BUPRENORPHINE SCREEN, URINE NEGATIVE (NEGATIVE); COCAINE SCREEN URINE NEGATIVE (NEGATIVE); METHADONE SCREEN, URINE NEGATIVE (NEGATIVE); METHAMPHETAMINES SCREEN, URINE NEGATIVE (NEGATIVE); OPIATE SCREEN, URINE NEGATIVE (NEGATIVE); OXYCODONE SCREEN, URINE NEGATIVE (NEGATIVE); THC CANNABINOID SCREEN, URINE NEGATIVE (NEGATIVE); TRICYCLIC ANTIDEPRESSANT,URINE NEGATIVE (NEGATIVE)
--- NOTE | 2024-12-01 14:01 | CT Report ---
PROCEDURE: CT Maxillofacial WO INDICATIONS: fall, on ground x 3days, pain TECHNIQUE: Noncontrast 1.5 mm thick axial images acquired from the mandible through the frontal sinuses, with co caleb and sagittal reformatting. For radiation dose reduction, the following was used: automated ex posure control, adjustment of mA and/or kV according to patient size. COMPARISON: None. FINDINGS: Image quality: Excellent. Bones and teeth: Orbital fernandez are intact. Sinus fernandez show no fracture or deformity. Nasal bones and septum are intact. Visualized portions of the mandible demonstrate no fractures or subluxation. The second and third right maxillary teeth are broken and have prominent periapical lucencies. Zygoma tic arches are intact. Pterygoid plates are intact. Visualized portions of the skull base and audit ory canals are intact. Sinuses: Paranasal sinuses are aerated, without fluid levels, mucosal thickening, or mucoceles. Mas toid air cells are aerated. Soft tissues: Left periorbital swelling No enlarged lymph nodes. No soft tissue lacerations or debri s. Vascular: Visualized vascular structures appear normal in the absence of contrast. Bony vascular fo ramina and canals are intact. IMPRESSION: 1. Left periorbital swelling. 2. No facial bone fracture or mandibular fracture. 3. Poor dentition. Reviewed by: Ced Gruber MD on 12/01/2024 1:59 PM [facility] Approved by: Ced Gruber MD on 12/01/2024 1:59 PM PST Station ID: [id number]
--- NOTE | 2024-12-01 14:04 | CT Report ---
PROCEDURE: CT Chest WO INDICATIONS: fall, on ground x 3days, pain TECHNIQUE: A CT scan of the chest was performed. Intravenous contrast media was not administered. Images were re corded and evaluated at appropriate window settings. Reformats: axial MIP of the chest, coronal and s agittal. For radiation dose reduction, the following was used: automated exposure control, adjustment of mA and/or kV according to patient size. COMPARISON: CT abdomen and pelvis from the same date. FINDINGS: Image quality: Diagnostic. Chest wall and lower neck: No thyroid nodule which requires sonographic follow up. No axillary or sup raclavicular adenopathy by size. Lungs and pleura: No consolidation. No pleural effusions. No pneumothorax. No suspicious pulmonary n odules which require follow up. Mediastinum: Heart size is normal. No pericardial effusion. No large vessel abnormality. No mediastin al adenopathy by size criteria. Bones: Right lateral fifth and sixth rib fractures may be acute. No acute thoracic compression fractu res.. Upper Abdomen: Unremarkable. IMPRESSION: 1. Right lateral fifth and 6 rib fractures may be acute. 2. No pneumothorax. No acute pulmonary infiltrates. 3. No acute thoracic compression fractures. Reviewed by: Ced Gruber MD on 12/01/2024 2:02 PM PST Approved by: Ced Gruber MD on 12/01/2024 2:02 PM PST Station ID: [id number]
[2024-12-01 14:07] LABS: BACTERIA,URINE Many /HPF (None Seen); RBC,URINE 0-5 /HPF (0-5); SQUAMOUS EPITHELIAL CELL,UR MANY Squamous (<= Few); WBC CLUMPS,URINE PRESENT; WBC,URINE >25 /HPF (0-5)
--- NOTE | 2024-12-01 14:09 | CT Report ---
PROCEDURE: CT Abdomen/Pelvis WO INDICATIONS: fall, on ground x 3days, pain TECHNIQUE: A CT scan of the abdomen and pelvis was performed without the use of intravenous contrast. Images we re recorded and evaluated at appropriate window settings. Reformats: coronal and sagittal. For radiat ion dose reduction, the following was used: automated exposure control, adjustment of mA and/or kV ac cording to patient size. COMPARISON: CT chest from today, CT abdomen and pelvis dated 08/06/2022. FINDINGS: Image quality: Diagnostic. Lower chest: Possible acute lateral right rib fractures.. Liver: No contour-deforming mass. Gallbladder: No radiopaque stones or wall thickening. Biliary tree: No intrahepatic or extrahepatic dilation, accounting for age. Spleen: No splenomegaly. Pancreas: No pancreatic ductal dilation. Adrenals: No adrenal nodule. Kidneys and ureters: No hydronephrosis. No contour-deforming mass. Stomach, bowel and peritoneum: No gastric or small bowel dilation. No abnormal wall thickening. No pa thologic free fluid. Lymph nodes: No central or retroperitoneal adenopathy. Vessels: No infrarenal aortic aneurysm. Reproductive organs: Unremarkable. Bladder: Kent catheter collapses the bladder. No bladder wall thickening. Pelvic lymph nodes: No adenopathy by size criteria. Bones: No aggressive osseous abnormality. No acute compression fractures in the lumbar spine. No pelv ic fractures identified.. Other: No significant ventral or inguinal hernia. IMPRESSION: Right lateral rib fractures, described in the CT chest report. No significant sequelae of acute trauma in the abdomen and pelvis. No acute process identified in the abdomen and pelvis. A Kent catheter decompresses the bladder. Reviewed by: Ced Gruber MD on 12/01/2024 2:08 PM PST Approved by: Ced Gruber MD on 12/01/2024 2:08 PM PST Station ID: [id number]
[2024-12-01] MEDS ORDERED: ONDANSETRON 4 MG/2 ML VIAL IVP PRN (15:20)
[2024-12-01] MEDS ORDERED: ONDANSETRON ODT 4 MG TABLET TL PRN (15:20)
[2024-12-01] MEDS: ELECTROLYTE-A SOLUTION 1,000 ML IV STA (15:34)
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
[2024-12-01] MEDS: SODIUM CHLORIDE FLUSH 0.9% 10 ML SYRINGE IVP SCH (16:38)
[2024-12-01] MEDS: SODIUM CHLORIDE 0.9% 1,000 ML IV SCH (19:16)
--- NOTE | 2024-12-01 22:23 | CONSULTATION NOTE ---
Chief Complaint Chief Complaint Chief Complaint: consult for rib fracture History of Present Illness Admitted From Admitted From:: ed History Obtained From Records Reviewed: yes History obtained from: ED MD Exam Limitations: none although I did not wake her History of Present Illness HPI Comment/Other: she fell and was down for [address] scan chest revealed 2 rib fractures which may be acute. no pneumothorax. consult requested Meds/Allgy Home Medications Ambulatory Orders Medication Instructions Recorded Confirmed ibuprofen 600 mg tablet 600 mg PO Q6H PRN pain #30 tabs 04/19/14 Allergies Allergies Allergy/AdvReac Type Severity Reaction Status Date / Time acetaminophen (From NyQuil) Allergy Severe Unknown Verified 12/01/24 12:25 dextromethorphan (From Allergy Severe Unknown Verified 12/01/24 12:25 NyQuil) doxylamine (From NyQuil) Allergy Severe Unknown Verified 12/01/24 12:25 pseudoephedrine (From NyQuil) Allergy Severe Unknown Verified 12/01/24 12:25 [facility] Social History Social History Smoking Status: Former smoker Level: Independent Do you feel safe in your home environment?: Yes Suffered physical, verbal, emotional, or financial abuse?: No History of Abuse: No POLST Patient has POLST: No Results Lab Results Lab results reviewed: Yes 12/01/24 12:43 12/01/24 12:43 Other Lab Results: Lab Results x24hrs 12/01/24 12/01/24 12/01/24 Range/Units 13:14 12:53 12:43 WBC 12.8 H (4.8-10.8) x10^3/uL RBC 5.67 H (4.20-5.40) 10^6/uL Hgb 17.6 H (12.0-16.0) g/dL Hct 52.9 H (37.0-47.0) % MCV 93.3 (81.0-99.0) fL MCH 31.0 (27.0-31.0) pg MCHC 33.3 (32.0-36.0) g/dL RDW 13.3 (12.0-15.0) % Plt Count 333 (130-450) 10^3/uL MPV 10.4 (7.9-10.8) fL Neut # (Auto) 10.2 H (1.5-6.6) 10^3/uL Lymph # (Auto) 0.8 L (1.5-3.5) 10^3/uL Floyd # (Auto) 1.5 H (0.0-1.0) 10^3/uL Eos # (Auto) 0.0 (0.0-0.7) 10^3/uL Baso # (Auto) 0.1 (0.0-0.1) 10^3/uL Absolute Nucleated RBC 0.00 x10^3/uL Nucleated RBC % 0.0 /100WBC Sodium 145 (135-145) mmol/L Potassium 5.2 H (3.5-4.5) mmol/L Chloride 108 (101-111) mmol/L Carbon Dioxide 20 L (21-32) mmol/L Anion Gap 17.0 H (6-13) BUN 183 H* (6-20) mg/dL Creatinine 3.5 H (0.6-1.3) mg/dL Estimated GFR (MDRD) 13 L (>89) Glucose 114 H (74-104) mg/dL POC Whole Bld Glucose 118 (70-100) mg/dL Calcium 9.2 (8.5-10.3) mg/dL Magnesium 3.3 H (1.7-2.3) mg/dL Total Bilirubin 1.0 (0.2-1.0) mg/dL AST 35 (10-42) IU/L ALT 31 (10-60) IU/L Alkaline Phosphatase 79 (42-121) IU/L Total Creatine Kinase 252 H (30-223) IU/L Total Protein 6.8 (6.4-8.9) g/dL Albumin 3.5 (3.2-5.5) g/dL Globulin 3.3 (2.1-4.2) g/dL Albumin/Globulin Ratio 1.1 (1.0-2.2) Lipase 85 H (11-82) U/L TSH 3.31 (0.34-5.60) uIU/mL Urine Color YELLOW Urine Clarity SL. CLOUDY (CLEAR) Urine pH 5.5 (5.0-7.5) PH Ur Specific [place] 1.025 (1.002-1.030) Urine Protein TRACE (NEGATIVE) mg/dL Urine Glucose (UA) NEGATIVE (NEGATIVE) mg/dL Urine Ketones NEGATIVE (NEGATIVE) mg/dL Urine Occult Blood MODERATE H (NEGATIVE) Urine Nitrite NEGATIVE (NEGATIVE) Urine Bilirubin SMALL H (NEGATIVE) Urine Urobilinogen 0.2 (NORMAL) (NORMAL) E.U./dL Ur Leukocyte Esterase MODERATE H (NEGATIVE) Urine RBC 0-5 (0-5) /HPF Urine WBC >25 H (0-5) /HPF Urine WBC Clumps PRESENT Ur Squamous Epith Cells MANY Squamous H (<= Few) Urine Bacteria Many H (None Seen) /HPF Ur Microscopic Review INDICATED Urine Culture Comments NOT INDICATED Salicylates < 1.5 mg/dL Urine Opiates Screen NEGATIVE (NEGATIVE) Ur Buprenorphine Scrn NEGATIVE (NEGATIVE) Ur Oxycodone Screen NEGATIVE (NEGATIVE) Urine Methadone Screen NEGATIVE (NEGATIVE) Acetaminophen 0.2 ug/mL Ur Barbiturates Screen NEGATIVE (NEGATIVE) Ur Tricyclics Screen NEGATIVE (NEGATIVE) Ur Phencyclidine Scrn NEGATIVE (NEGATIVE) Ur Amphetamine Screen NEGATIVE (NEGATIVE) U Methamphetamines Scrn NEGATIVE (NEGATIVE) U Benzodiazepines Scrn NEGATIVE (NEGATIVE) Urine Cocaine Screen NEGATIVE (NEGATIVE) U Cannabinoids Screen NEGATIVE (NEGATIVE) Ur Drug Screen Comment CUTOFF CONC BELOW: Ethyl Alcohol < 10.0 mg/dL Exam Constitutional no apparent distress ecchymosis left face and forehead. she is sleeping comfortable HENMT as above Respiratory normal respiratory effort she is sound asleep and taking deep normal breaths Conclusion/Plan Problem List (1) Acute metabolic encephalopathy: (2) Acute dehydration: (3) Acute kidney insufficiency: (4) Closed rib fracture: Plan: agree with care. she currently is very comfortable taking nice deep breaths (5) Rash: Lab Results Lab results reviewed: Yes 12/01/24 12:43 12/01/24 12:43
[2024-12-01] MEDS: SULFACETAMIDE 10% OPHTH DROPS EACHEYE SCH (23:55)
[2024-12-02] MEDS: oxyCODONE 5 MG TABLET PO PRN (00:08)
[2024-12-02 06:17] LABS: BASOPHILS % (AUTO) 0.2 %; EOSINOPHILS % (AUTO) 0.2 %; HGB - HEMOGLOBIN 13.6 g/dL (12.0-16.0); LYMPHOCYTES % (AUTO) 6.4 %; MEAN CORPUSCULAR HEMOGLOBIN 30.8 pg (27.0-31.0); MEAN CORPUSCULAR HGB CONC 33.2 g/dL (32.0-36.0); MEAN PLATELET VOLUME 10.5 fL (7.9-10.8); MONOCYTES % (AUTO) 13.6 %; NEUTROPHILS % (AUTO) 77.5 %; PLT - PLATELET COUNT 262 10^3/uL (130-450); RED BLOOD COUNT 4.41 10^6/uL (4.20-5.40); RED CELL DISTRIBUTION WIDTH 13.2 % (12.0-15.0); WHITE BLOOD COUNT 13.1 x10^3/uL (4.8-10.8)
[2024-12-02 06:28] LABS: ABNORMAL LYMPHS % (MANUAL) 0 %; BAND NEUTROPHILS % (MANUAL) 0 %
[2024-12-02 06:45] LABS: CALCIUM 8.2 mg/dL (8.5-10.3); CREATININE 3.3 mg/dL (0.6-1.3); POTASSIUM 3.8 mmol/L (3.5-4.5)
[2024-12-02 06:52] LABS: LYMPHOCYTES # (MANUAL) 1.8 10^3/uL (1.5-3.5); LYMPHOCYTES % (MANUAL) 14 %; MONOCYTES # (MANUAL) 1.4 10^3/uL (0.0-1.0); NEUTROPHILS # (MANUAL) 9.8 10^3/uL (1.5-6.6)
[2024-12-02 06:53] LABS: DIFFERENTIAL COMMENT MANUAL DIFFERENTIAL; PLATELET ESTIMATE, MANUAL NORMAL (130-450,000) (NORMAL); PLATELET MORPHOLOGY NORMAL APPEARANCE (NORMAL); RBC MORPHOLOGY (MULTIPLE) NORMAL APPEARANCE (NORMAL); WBC MORPHOLOGY (MULTIPLE) NORMAL APPEARANCE (NORMAL)
--- NOTE | 2024-12-02 07:43 | PROVIDER PROGRESS NOTE ---
Subjective Prog Note Date Prog Note Date: 12/02/24 Prog Note Time: 07:40 Subjective Subjective: Nursing reports that she definitely has a left-sided neglect. Last night she was not moving her left arm and I attributed to laying on that left side. I was able to get her eyes to moved to the midline. But this morning she is not able to move her eyes. Cries out with pain "I am burning and burning". And uses her right arm to gesticulate to the upper abdominal area. Urine is foul-smelling. Last night urine was not submitted for culture because of contamination. Nursing also reports that she has episodes of shaking where she trembles all over where she appears to be very frightened, and overwhelmed.No focal tonic-clonic movement. She was sometimes wake up so frightened that she was started banging on the bedside rail. But at the same time one of the nurses out for privacy. And then would be grabbing onto them and grabbed the front of their uniform because she was so scared. She has received 3 L of fluid. No fever last night. Current Medications Current Medications Current Medications: Current Medications Generic Name Dose Route Start Last Admin Trade Name Freq PRN Reason Stop Dose Admin Ceftriaxone Sodium 2 gm 12/02/24 09:00 Ceftriaxone 2 Gm Vial IVP DAILY TREVOR Enoxaparin Sodium 30 mg 12/02/24 09:00 Enoxaparin 30 Mg/0.3 Ml Syringe SUBQ DAILY TREVOR Hydromorphone HCl 0.5 mg 12/02/24 07:37 Hydromorphone 0.5 Mg/0.5 Ml Syringe IVP Q2H PRN Severe Pain (Level 7-10) Sodium Chloride 1,000 mls @ 85 mls/hr 12/02/24 08:00 Normal Saline 0.9% IV .[id number] TREVOR Acyclovir 600 mg/ Sodium 512 mls @ 500 mls/hr 12/02/24 08:00 Chloride IV Q8H TREVOR Multi-Ingredient Ointment 1 applic 12/02/24 06:08 Zinc Oxide 20% Oint 30 Gm Tube TOP PRN PRN Skin Care Ondansetron HCl 4 mg 12/01/24 15:20 Ondansetron Odt 4 Mg Tablet TL Q6HR PRN Nausea / Vomiting Ondansetron HCl 4 mg 12/01/24 15:20 Ondansetron 4 Mg/2 Ml Vial IVP Q6HR PRN Nausea / Vomiting Oxycodone HCl 5 mg 12/01/24 15:20 12/02/24 00:08 Oxycodone 5 Mg Tablet PO 5 mg Q4HR PRN Administration Pain 5 to 7 Sodium Chloride 10 ml 12/01/24 15:20 Sodium Chloride Flush 0.9% 10 Ml Syringe IVP PRN PRN NEEDED PER PROVIDER ORDERS Sodium Chloride 10 ml 12/01/24 17:00 12/01/24 23:55 Sodium Chloride Flush 0.9% 10 Ml Syringe IVP 10 ml 0100,[id number],1700 TREVOR Administration Sulfacetamide Sodium 1 drops 12/02/24 00:00 12/02/24 06:07 Sulfacetamide 10% Ophth Drops EACHEYE 1 drops Q3HR TREVOR Administration Objective Vital Signs/Intake & Output Reviewed Vital Signs: Yes Vital Signs: Vital Signs x48h Temp Pulse Resp BP Pulse Ox 12/02/24 04:22 36.6 C 96 18 147/73 H 94 12/02/24 00:30 24 12/02/24 00:12 36.4 C L 95 20 128/70 94 Intake & Output: Intake & Output 11/29/24 11/30/24 12/01/24 12/02/24 23:59 23:59 23:59 23:59 Intake Total 3549 / 3549 1000 / 1000 Output Total 100 / 100 200 / 200 Balance 3449 / 3449 800 / 800 Weight (kg) 83 kg 87 kg Objective General Appearance: positive Other (Disheveled and with same bad body odor. Nursing reports she is very fearful. Also reports that she is "burning, burning" and uses her right and to point to her abdominal area.) Eyes Bilateral: positive PERRL; negative EOMI (Still with left gaze deviation. Still turning her head to the right) ENT: positive Other (Left temporal eyebrow area loss of skin, bruising in that area same as last night) Neck: negative Stiff neck (But when i turn her head to the left, she goes right back to the right deviation) Respiratory: positive Chest non-tender and No respiratory distress Cardiovascular: positive Regular rate & rhythm and Systolic murmur Abdomen: positive Non-tender, No organomegaly, Nml bowel sounds and Other (Patient was able to sit up in bed and the nurse was feeding her. Patient was slowly chewing and swallowing.) Skin: positive Other (Right breast pannus with possible, possible vesicular lesions. Left breast pannus with excoriations from scratching. Anterior chest with bruising and red splotches. Left side of face with bruising. But at the lateral edge of eyebrow into roman catholic irregular loss of skin down to bone) Extremities: positive Full ROM (Will withdraw to care. Moving right arm and right leg. Will definitely move left leg and withdraw to noxious stimuli. Left arm still not moving) Neurologic/Psychiatric: positive Other (Still with preferential right-sided gaze. Speech is mumbling. But occasionally outburst where I can hear exactly what she is saying "it is burning, it is burning".) Lab Results 12/02/24 05:48 12/02/24 05:48 Other Labs: Lab Results x24hrs 12/02/24 12/01/24 12/01/24 Range/Units 05:48 13:14 12:53 WBC 13.1 H (4.8-10.8) x10^3/uL RBC 4.41 (4.20-5.40) 10^6/uL Hgb 13.6 (12.0-16.0) g/dL Hct 41.0 (37.0-47.0) % MCV 93.0 (81.0-99.0) fL MCH 30.8 (27.0-31.0) pg MCHC 33.2 (32.0-36.0) g/dL RDW 13.2 (12.0-15.0) % Plt Count 262 (130-450) 10^3/uL MPV 10.5 (7.9-10.8) fL Neut # (Auto) Not Reportable (1.5-6.6) 10^3/uL Lymph # (Auto) Not Reportable (1.5-3.5) 10^3/uL Chase # (Auto) Not Reportable (0.0-1.0) 10^3/uL Eos # (Auto) Not Reportable (0.0-0.7) 10^3/uL Baso # (Auto) Not Reportable (0.0-0.1) 10^3/uL Absolute Nucleated RBC Not Reportable x10^3/uL Total Counted 100 Band Neuts % (Manual) 0 (0 - 10) % Abnorm Lymph % (Manual) 0 % Nucleated RBC % Not Reportable /100WBC Neutrophils # (Manual) 9.8 H (1.5-6.6) 10^3/uL Lymphocytes # (Manual) 1.8 (1.5-3.5) 10^3/uL Monocytes # (Manual) 1.4 H (0.0-1.0) 10^3/uL Eosinophils # (Manual) 0.0 (0-0.7) 10^3/uL Basophils # (Manual) 0.0 (0-0.1) 10^3/uL Differential Comment MANUAL DIFFERENTIAL WBC Morphology NORMAL APPEARANCE (NORMAL) Platelet Estimate NORMAL (130-450,000) (NORMAL) Platelet Morphology NORMAL APPEARANCE (NORMAL) RBC Morph Micro Appear NORMAL APPEARANCE (NORMAL) Sodium 146 H (135-145) mmol/L Potassium 3.8 (3.5-4.5) mmol/L Chloride 113 H (101-111) mmol/L Carbon Dioxide 21 (21-32) mmol/L Anion Gap 12.0 (6-13) BUN 177 H* (6-20) mg/dL Creatinine 3.3 H (0.6-1.3) mg/dL Estimated GFR (MDRD) 13 L (>89) Glucose 108 H (74-104) mg/dL POC Whole Bld Glucose 118 (70-100) mg/dL Calcium 8.2 L (8.5-10.3) mg/dL Magnesium (1.7-2.3) mg/dL Total Bilirubin (0.2-1.0) mg/dL AST (10-42) IU/L ALT (10-60) IU/L Alkaline Phosphatase (42-121) IU/L Total Creatine Kinase (30-223) IU/L Total Protein (6.4-8.9) g/dL Albumin (3.2-5.5) g/dL Globulin (2.1-4.2) g/dL Albumin/Globulin Ratio (1.0-2.2) Lipase (11-82) U/L TSH (0.34-5.60) uIU/mL Urine Color YELLOW Urine Clarity SL. CLOUDY (CLEAR) Urine pH 5.5 (5.0-7.5) PH Ur Specific [place] 1.025 (1.002-1.030) Urine Protein TRACE (NEGATIVE) mg/dL Urine Glucose (UA) NEGATIVE (NEGATIVE) mg/dL Urine Ketones NEGATIVE (NEGATIVE) mg/dL Urine Occult Blood MODERATE H (NEGATIVE) Urine Nitrite NEGATIVE (NEGATIVE) Urine Bilirubin SMALL H (NEGATIVE) Urine Urobilinogen 0.2 (NORMAL) (NORMAL) E.U./dL Ur Leukocyte Esterase MODERATE H (NEGATIVE) Urine RBC 0-5 (0-5) /HPF Urine WBC >25 H (0-5) /HPF Urine WBC Clumps PRESENT Ur Squamous Epith Cells MANY Squamous H (<= Few) Urine Bacteria Many H (None Seen) /HPF Ur Microscopic Review INDICATED Urine Culture Comments NOT INDICATED Salicylates mg/dL Urine Opiates Screen NEGATIVE (NEGATIVE) Ur Buprenorphine Scrn NEGATIVE (NEGATIVE) Ur Oxycodone Screen NEGATIVE (NEGATIVE) Urine Methadone Screen NEGATIVE (NEGATIVE) Acetaminophen ug/mL Ur Barbiturates Screen NEGATIVE (NEGATIVE) Ur Tricyclics Screen NEGATIVE (NEGATIVE) Ur Phencyclidine Scrn NEGATIVE (NEGATIVE) Ur Amphetamine Screen NEGATIVE (NEGATIVE) U Methamphetamines Scrn NEGATIVE (NEGATIVE) U Benzodiazepines Scrn NEGATIVE (NEGATIVE) Urine Cocaine Screen NEGATIVE (NEGATIVE) U Cannabinoids Screen NEGATIVE (NEGATIVE) Ur Drug Screen Comment CUTOFF CONC BELOW: Ethyl Alcohol mg/dL 12/01/24 Range/Units 12:43 WBC 12.8 H (4.8-10.8) x10^3/uL RBC 5.67 H (4.20-5.40) 10^6/uL Hgb 17.6 H (12.0-16.0) g/dL Hct 52.9 H (37.0-47.0) % MCV 93.3 (81.0-99.0) fL MCH 31.0 (27.0-31.0) pg MCHC 33.3 (32.0-36.0) g/dL RDW 13.3 (12.0-15.0) % Plt Count 333 (130-450) 10^3/uL MPV 10.4 (7.9-10.8) fL Neut # (Auto) 10.2 H (1.5-6.6) 10^3/uL Lymph # (Auto) 0.8 L (1.5-3.5) 10^3/uL Chase # (Auto) 1.5 H (0.0-1.0) 10^3/uL Eos # (Auto) 0.0 (0.0-0.7) 10^3/uL Baso # (Auto) 0.1 (0.0-0.1) 10^3/uL Absolute Nucleated RBC 0.00 x10^3/uL Total Counted Band Neuts % (Manual) (0 - 10) % Abnorm Lymph % (Manual) % Nucleated RBC % 0.0 /100WBC Neutrophils # (Manual) (1.5-6.6) 10^3/uL Lymphocytes # (Manual) (1.5-3.5) 10^3/uL Monocytes # (Manual) (0.0-1.0) 10^3/uL Eosinophils # (Manual) (0-0.7) 10^3/uL Basophils # (Manual) (0-0.1) 10^3/uL Differential Comment WBC Morphology (NORMAL) Platelet Estimate (NORMAL) Platelet Morphology (NORMAL) RBC Morph Micro Appear (NORMAL) Sodium 145 (135-145) mmol/L Potassium 5.2 H (3.5-4.5) mmol/L Chloride 108 (101-111) mmol/L Carbon Dioxide 20 L (21-32) mmol/L Anion Gap 17.0 H (6-13) BUN 183 H* (6-20) mg/dL Creatinine 3.5 H (0.6-1.3) mg/dL Estimated GFR (MDRD) 13 L (>89) Glucose 114 H (74-104) mg/dL POC Whole Bld Glucose (70-100) mg/dL Calcium 9.2 (8.5-10.3) mg/dL Magnesium 3.3 H (1.7-2.3) mg/dL Total Bilirubin 1.0 (0.2-1.0) mg/dL AST 35 (10-42) IU/L ALT 31 (10-60) IU/L Alkaline Phosphatase 79 (42-121) IU/L Total Creatine Kinase 252 H (30-223) IU/L Total Protein 6.8 (6.4-8.9) g/dL Albumin 3.5 (3.2-5.5) g/dL Globulin 3.3 (2.1-4.2) g/dL Albumin/Globulin Ratio 1.1 (1.0-2.2) Lipase 85 H (11-82) U/L TSH 3.31 (0.34-5.60) uIU/mL Urine Color Urine Clarity (CLEAR) Urine pH (5.0-7.5) PH Ur Specific [place] (1.002-1.030) Urine Protein (NEGATIVE) mg/dL Urine Glucose (UA) (NEGATIVE) mg/dL Urine Ketones (NEGATIVE) mg/dL Urine Occult Blood (NEGATIVE) Urine Nitrite (NEGATIVE) Urine Bilirubin (NEGATIVE) Urine Urobilinogen (NORMAL) E.U./dL Ur Leukocyte Esterase (NEGATIVE) Urine RBC (0-5) /HPF Urine WBC (0-5) /HPF Urine WBC Clumps Ur Squamous Epith Cells (<= Few) Urine Bacteria (None Seen) /HPF Ur Microscopic Review Urine Culture Comments Salicylates < 1.5 mg/dL Urine Opiates Screen (NEGATIVE) Ur Buprenorphine Scrn (NEGATIVE) Ur Oxycodone Screen (NEGATIVE) Urine Methadone Screen (NEGATIVE) Acetaminophen 0.2 ug/mL Ur Barbiturates Screen (NEGATIVE) Ur Tricyclics Screen (NEGATIVE) Ur Phencyclidine Scrn (NEGATIVE) Ur Amphetamine Screen (NEGATIVE) U Methamphetamines Scrn (NEGATIVE) U Benzodiazepines Scrn (NEGATIVE) Urine Cocaine Screen (NEGATIVE) U Cannabinoids Screen (NEGATIVE) Ur Drug Screen Comment Ethyl Alcohol < 10.0 mg/dL ABX Reporting Has patient been on IV antibiotics over the past 48 hours?: Yes Assessment/Plan Problem List (1) Acute metabolic encephalopathy: Impression: Continues. Her stroke score is high. Last night which I attributed to her encephalopathy to severe dehydration. And I noticed the left-sided neglect but thought it was due to the body positioning as she lay on the floor for 3 days. Today, she has not improved and I do worry about a stroke. But CT of the head is negative. I do not think I am going to be able to get this woman to cooperate from her MRI due to her agoraphobia and panic disorder. I will start her on Dilaudid half a milligram every 2 hours for when she cries out for pain and see if controlling her pain will allow her to get an MRI. In the meantime I will continue to treat severe renal failure due to acute dehydration.Please see problem #4. I will be starting her on acyclovir. And I will also be starting her on Rocephin for UTI (#5). She is able have asked the nurses to please get her up and give her a shower. I did update her son in [place] on today's events. Discussed that I would like to get an MRI. But I may not be able to because of her inability to follow commands and hold still. I will keep on trying every day. It will not change my management. But at least would confirm something. Her old CTs do have lacunar infarcts. (2) Acute dehydration: Impression: Due to fall and being on the floor. No p.o. intake for 3 days. CPK does not appear to be severely elevated on admission but I will do an add-on lab today to make sure, now that we removed her, that she is not flooding her bloodstream with muscle breakdown. Status post 3 L, I will now reduce to 100 cc an hour and continue to hydrate her until she is awake enough to take p.o. (3) Acute kidney insufficiency: Impression: See #2. I will be checking CPK (4) Rash: Impression: Last night she had definite excoriation underneath the left breast were she had scratched herself and you could see the typical lines that were clear linear and scabbed over. The right side of her upper abdominal wall had a nonspecific almost vesicular type rash. It did not wrap around to her spinal area. But I could be missing zoster. I am going to be adding acyclovir empirically. (5) Foul smelling urine: Impression: Urinalysis last night was contaminated with squamous cells. Not sent for culture. I will resubmit UA this morning and empirically give her Rocephin (6) Closed rib fracture: Impression: Not much to do as though there encourage deep breathing and I have already started Dilaudid is in problem #1. Qualifiers: Encounter type: initial encounter Rib fracture type: multiple ribs L aterality: right Qualified Code(s): S22.41XA - Multiple fractures of ribs, right side, initial encounter for closed fracture
[2024-12-02] MEDS: SODIUM CHLORIDE 0.9% 1,000 ML IV SCH (07:46)
[2024-12-02] MEDS: cefTRIAXone 2 GM VIAL IVP SCH (08:04)
[2024-12-02] MEDS: ENOXAPARIN 30 MG/0.3 ML SYRINGE SUBQ SCH (08:04)
[2024-12-02] MEDS: SODIUM CHLORIDE 0.9% IV SCH ×2 (08:22→09:19)
[2024-12-02] MEDS: ACYCLOVIR IV SCH ×2 (08:22→09:19)
[2024-12-02 08:42] LABS: BILIRUBIN,URINE NEGATIVE (NEGATIVE); GLUCOSE, URINE (UA) NEGATIVE (NEGATIVE); KETONES,URINE (UA) NEGATIVE (NEGATIVE); LEUKOCYTE ESTERASE, URINE MODERATE (NEGATIVE); NITRITE,URINE NEGATIVE (NEGATIVE); OCCULT BLOOD,URINE MODERATE (NEGATIVE); PH,URINE 5.5 PH (5.0-7.5); PROTEIN,URINE TRACE mg/dL (NEGATIVE); UROBILINOGEN,URINE 0.2 (NORMAL) E.U./dL (NORMAL)
[2024-12-02 08:59] LABS: BACTERIA,URINE Few /HPF (None Seen); CLARITY,URINE CLEAR (CLEAR); SQUAMOUS EPITHELIAL CELL,UR NONE SEEN (<= Few); WBC,URINE >25 /HPF (0-5)
[2024-12-02 09:00] LABS: CASTS, URINE 6-10 Hyaline Casts /LPF
[2024-12-02] MEDS ORDERED: ENOXAPARIN 40 MG/0.4 ML SYRINGE SUBQ SCH (09:00)
--- NOTE | 2024-12-02 13:54 | PHARMACY PROGRESS NOTE ---
Best Possible Medication History Admit Date and Time: 12/01/24 [id number] Home Medications Medication Instructions Recorded Confirmed Type ibuprofen 600 mg tablet 600 mg PO Q6H PRN pain #30 tabs 04/19/14 12/02/24 Rx Processed by: Pharmacy Medications reviewed in ED?: No Medication History completed: Yes Patient Interview: Pt unable to participate Secondary Source(s): Insurance records [facility] Statement: Per [employer] and Rx records search only. Pt unable to participate with multiple attempts. As the person ultimately responsible for medication therapy, providers are able to order a medication from an existing home medication list in [facility] via the "Reconcile Routine" prior to Confirmation of that medication by network support manager. Such practice is discouraged except when the physician, in their clinical judgment, deems that a medical need exists for a medication without regard to previous use.
[2024-12-02] MEDS ORDERED: LORazepam 2 MG/ML VIAL IVP PRN (18:37)
[2024-12-02] MEDS: NYSTATIN CREAM 15 GM TUBE TOP SCH (21:44)
[2024-12-03 05:38] LABS: BASOPHILS % (AUTO) 0.4 %; EOSINOPHILS # (AUTO) 0.1 10^3/uL (0.0-0.7); EOSINOPHILS % (AUTO) 1.6 %; HCT - HEMATOCRIT 39.6 % (37.0-47.0); LYMPHOCYTES # (AUTO) 0.8 10^3/uL (1.5-3.5); LYMPHOCYTES % (AUTO) 9.5 %; MEAN CORPUSCULAR HEMOGLOBIN 31.2 pg (27.0-31.0); MEAN CORPUSCULAR HGB CONC 32.8 g/dL (32.0-36.0); MEAN PLATELET VOLUME 10.2 fL (7.9-10.8); MONOCYTES # (AUTO) 1.2 10^3/uL (0.0-1.0); MONOCYTES % (AUTO) 14.8 %; NEUTROPHILS # (AUTO) 5.7 10^3/uL (1.5-6.6); NEUTROPHILS % (AUTO) 69.7 %; NRBC ABSOLUTE COUNT (AUTO) 0.02 x10^3/uL; NUCLEATED RED BLOOD CELLS AUTO 0.2 /100WBC; PLT - PLATELET COUNT 219 10^3/uL (130-450); RED BLOOD COUNT 4.17 10^6/uL (4.20-5.40); RED CELL DISTRIBUTION WIDTH 13.5 % (12.0-15.0); WHITE BLOOD COUNT 8.2 x10^3/uL (4.8-10.8)
[2024-12-03 05:56] LABS: CREATININE 1.9 mg/dL (0.6-1.3); POTASSIUM 3.2 mmol/L (3.5-4.5)
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
[2024-12-03] MEDS: DEXTROSE 5% 1,000 ML IV SCH (09:43)
[2024-12-03] MEDS: POTASSIUM CHLOR 10 MEQ/100 ML 10 MEQ/100 ML BAG IV SCH (09:44)
--- NOTE | 2024-12-03 13:50 | PROVIDER PROGRESS NOTE ---
Subjective General Admit Date: 12/01/24 Other Other Information/Narrative: 79yoF admitted with metabolic derangements and concern for stroke after being found down for 3 days. Among her many other acute issues being managed by Dr. Castro, she was noted to have a left temporal wound/ulcer that I have been consulted to see. The patient is unable to provide any history regarding the wound. She is being treated for a UTI/leukocytosis. Review of Systems Status of ROS: 10 or more systems reviewed and unremarkable except as noted in history and below Exam Constitutional limitations noted (altered mental status) HENMT 1x2cm full thickness wound at the left catholic, at the lateral aspect of the eyebrow. The wound is chronic appearing, with about 0.5 x 1cm of bone exposed at the base. The edges of the wound are chronically thickened. There is no surrounding erythema, fluctuance, or induration. Within the wound, there is a caked-on white substance into which there are hairs adherant. There is no drainage or purulence. Impression/Plan Problem List (1) Open wound of face, complicated: Plan: 79yoF with altered mental status, possible stroke, and many acute medical problems being managed by the hospitalist service. Found on admission to have a left temporal wound. In examining the wound, there is NO active infection, the wound is chronic appearing (ie presence far pre-dates the 3d period of being down leading up to this admission), there is exposed bone. It looks as though the patient may have been applying a topical ointment (possibly a zinc-based barrier cream?) to the wound prior to her period of being down before admission. With bone exposure and proximity to the left orbit, would consider the wound complicated and high risk for bacterial tracking along periostium if it were to become infected. - Ultimately, recommend referral to plastic surgery for coverage. - In the meantime, recommend local wound care with daily bacitracin + mepitel one (or other nonadherant layer) + mepilex [id number] cover dressing. - She will not tolerate debridement at bedside (I tried limited debridement with saline/4x4). Given the lack of infection, I don't think that going to the OR for debridement under anesthesia is indicated at this time. Jennifer Sharpe DO, FACS General Surgeon, [facility] Qualifiers: Encounter type: initial encounter Qualified Code(s): S01.80XA - Unspecified open wound of other part of head, initial encounter
[2024-12-03] MEDS: BACITRACIN ZINC OINT 28.4 GM TUBE TOP SCH (14:37)
[2024-12-03 16:11] LABS: CALCIUM 7.9 mg/dL (8.5-10.3); CREATININE 1.4 mg/dL (0.6-1.3); POTASSIUM 3.6 mmol/L (3.5-4.5)
[2024-12-03] MEDS: SODIUM CHLORIDE 0.9% IV SCH (20:22)
[2024-12-03] MEDS: ACYCLOVIR IV SCH (20:22)
[2024-12-04] MEDS: LORazepam 2 MG/ML VIAL IVP PRN (00:06)
[2024-12-04 04:46] LABS: BASOPHILS % (AUTO) 0.4 %; EOSINOPHILS # (AUTO) 0.2 10^3/uL (0.0-0.7); EOSINOPHILS % (AUTO) 1.7 %; HGB - HEMOGLOBIN 11.3 g/dL (12.0-16.0); LYMPHOCYTES % (AUTO) 9.6 %; MEAN CORPUSCULAR HEMOGLOBIN 31.5 pg (27.0-31.0); MEAN CORPUSCULAR HGB CONC 33.2 g/dL (32.0-36.0); MEAN CORPUSCULAR VOLUME 94.7 fL (81.0-99.0); MEAN PLATELET VOLUME 10.2 fL (7.9-10.8); MONOCYTES # (AUTO) 1.4 10^3/uL (0.0-1.0); MONOCYTES % (AUTO) 14.5 %; NEUTROPHILS # (AUTO) 6.9 10^3/uL (1.5-6.6); NEUTROPHILS % (AUTO) 70.2 %; NRBC ABSOLUTE COUNT (AUTO) 0.02 x10^3/uL; NUCLEATED RED BLOOD CELLS AUTO 0.2 /100WBC; PLT - PLATELET COUNT 174 10^3/uL (130-450); RED BLOOD COUNT 3.59 10^6/uL (4.20-5.40); RED CELL DISTRIBUTION WIDTH 13.4 % (12.0-15.0); WHITE BLOOD COUNT 9.9 x10^3/uL (4.8-10.8)
[2024-12-04] MEDS: HYDROmorphone 0.5 MG/0.5 ML SYRINGE IVP PRN (05:14)
[2024-12-04 05:22] LABS: CALCIUM 7.5 mg/dL (8.5-10.3); CREATININE 1.1 mg/dL (0.6-1.3); POTASSIUM 3.4 mmol/L (3.5-4.5)
--- NOTE | 2024-12-04 15:18 | OT Plan of Care ---
OT Inpatient POC Diagnosis DIAGNOSIS Diagnosis: MARIO, dehydration, ? CVA Chief Complaint: Found down unknown time; AMS Referring Provider: Regi Castro Assessment and Goals ASSESSMENT Assessment: Pt is a 79 y/o female adm s/p welfare check, found down in home ~3 days. Presenting with L orbital laceration, L inattention x-rays included a head CT, cervical spine CT, facial bone CT, chest CT, and abdomen and pelvis CT. Noted to have R fib fx. Admitted for acute renal failure due to severe dehydration and rhabdomyolysis. PMhx significant for CVA, seizure disorder and Personality disorder (reported by Son) with intermittent emergence of childlike behaviors however otherwise INDP according to son. Surgery consult for L eye lac No surgical intervention at this time. Conservative intervention of Rib fractures. Met supine in bed Eyes closed but open to verbal stim. Noted R visual gaze, able to cross midline with heavy cues to track therapist but unable to hold. Minimal vocalization noted with automatic responses (HelloGoodbyeWater) as well as Y/N to personally relevant questions with accuracy. A&O to self only. Follows simple 1 step commands ~ 75% of time with R side of body (Wiggle toes, suck out tongue, show me 2 fingers). Requires multisensory cues to maintain attention as mental fatigue is present. R UE assessment: Edema with lateral wrist laceration dressed by nursing during session. No clonus present. Flaccid. L LE assessment: Edema, no clonus, flaccid. Generalized response to noxious stim (facial grimace in L upper and lower extremities. Performed DEP Ax2 long sitting supine in bed Fair head control, poor trunk control, discomfort noted. Currently total assist with ADLs. Rec L UE on x3 pillows for elevation with towel bolster in L palm for positioning. RN present for education. Overall pt presents with L sided weakness, inattention, decreased sensation, coordination, cognition, vision impairing functional mobility and ADLs. Pt will benefit from cont OT services during acute stay. Rec d/c to SNF once medically stable. -Activities of Daily Living Improve Upper Extremity Dressing to:: Minimal Assist Improve Lower Extremity Dressing to:: Minimal Assist Improve Grooming/Hygiene to:: Minimal Assist Improve Bathing to:: Minimal Assist Improve Toileting to:: Minimal Assist OT Inpatient Plan PLAN Treatment Frequency: 1x/day Duration: Until discharge -Discharge Recommendations Discharge Location: Custodial Facility Transport Needs at Discharge: [facility]
[2024-12-04] MEDS: ZINC OXIDE 20% OINT 30 GM TUBE TOP PRN (16:48)
[2024-12-04] MEDS: MULTIVITAMIN W/MINERALS TABLET PO SCH (16:53)
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
[2024-12-04] MEDS: POTASSIUM CHLOR 10 MEQ/100 ML 10 MEQ/100 ML BAG IV SCH (19:20)
[2024-12-04] MEDS: ATORVASTATIN 40 MG TABLET PO SCH (21:12)
[2024-12-05 06:50] LABS: CALCIUM 7.8 mg/dL (8.5-10.3); CREATININE 0.8 mg/dL (0.6-1.3)
[2024-12-05 07:09] LABS: BASOPHILS % (AUTO) 0.6 %; EOSINOPHILS % (AUTO) 4.2 %; HCT - HEMATOCRIT 31.4 % (37.0-47.0); LYMPHOCYTES % (AUTO) 17.1 %; MEAN CORPUSCULAR HGB CONC 31.8 g/dL (32.0-36.0); MEAN CORPUSCULAR VOLUME 97.2 fL (81.0-99.0); MEAN PLATELET VOLUME 10.5 fL (7.9-10.8); MONOCYTES % (AUTO) 13.2 %; NEUTROPHILS % (AUTO) 59.5 %; PLT - PLATELET COUNT 159 10^3/uL (130-450); RED BLOOD COUNT 3.23 10^6/uL (4.20-5.40); RED CELL DISTRIBUTION WIDTH 13.3 % (12.0-15.0)
[2024-12-05 07:13] LABS: SLIDE REVIEW? Indicated
[2024-12-05 07:40] LABS: ABNORMAL LYMPHS % (MANUAL) 0 %; BAND NEUTROPHILS % (MANUAL) 0 %
[2024-12-05 07:43] LABS: EOSINOPHILS # (MANUAL) 0.2 10^3/uL (0-0.7); LYMPHOCYTES # (MANUAL) 1.3 10^3/uL (1.5-3.5); LYMPHOCYTES % (MANUAL) 10 %; MONOCYTES # (MANUAL) 0.7 10^3/uL (0.0-1.0); MYELOCYTES % (MANUAL) 3 %; NEUTROPHILS # (MANUAL) 7.5 10^3/uL (1.5-6.6); REACTIVE LYMPHS % (MANUAL) 3 %
[2024-12-05 07:44] LABS: DIFFERENTIAL COMMENT MANUAL DIFFERENTIAL; PLATELET ESTIMATE, MANUAL NORMAL (130-450,000) (NORMAL); RBC MORPHOLOGY (MULTIPLE) 2+ ANISOCYTOSIS (NORMAL)
[2024-12-05] MEDS: ASPIRIN EC 81 MG TABLET PO SCH (08:32)
[2024-12-05] MEDS: ENOXAPARIN 40 MG/0.4 ML SYRINGE SUBQ SCH (08:33)
--- NOTE | 2024-12-05 09:17 | PROVIDER PROGRESS NOTE ---
Progress Note Progress Note Progress Note: I have discussed the patient with the primary team. We will sign off at this time and follow peripherally. If you have questions or concerns for surgery, please call surgeon non cdl driver.
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
--- NOTE | 2024-12-05 12:49 | PT Plan of Care ---
PT Plan of Care Physical Therapy Plan of Care: Diagnosis Diagnosis CVA Diagnosis rhabdo, MARIO Referring Provider Regi Castro Patient Status Inpatient Chief Complaint Chief Complaint Found down unknown time; AMS Onset of Chief Complaint RECRUITMENT DIRECTOR approx 11/28/24 Assessment Assessment Pt is an 79yo F admitted s/p welfare check, found down in home on 12/01/24. Prior level of function unknown but pt lived indep so presume indep to [place] baseline. Presenting with L orbital laceration, L inattention, and hypoverbal. Imaging included head, cervical spine, facial bone, chest, abdomen and pelvis CT . Noted to have R fib fx. Admitted for acute renal failure due to severe dehydration and rhabdomyolysis. PMH significant for CVA, seizure disorder and personality disorder (reported by son). Surgery consult for L eye lac No surgical intervention at this time. Conservative intervention of Rib fractures. Upon PT eval, pt met supine in bed eyes closed but open to verbal stim. Noted R visual gaze, able to cross midline with moderate cueing to track therapist but unable to hold. Minimal vocalization noted with automatic responses; A&O to self only. Able to follow simple 1-2 step commands approx 75% of time with R side of body (Wiggle toes, stock out tongue, show me 2 fingers). Requires multisensory cues to maintain attention d/t mental fatigue. LUE edematous with lateral wrist laceration dressed by RN. No clonus present. Flaccid. LLE assessment: Edema, no clonus, flaccid. Generalized response to noxious stim ( facial grimace in L upper and lower extremities. Performed DEP Ax2 long sitting supine in bed Fair head control, poor trunk control, discomfort noted. Currently total assist with ADLs. Overall pt presents with L sided weakness , inattention, decreased sensation, coordination , cognition and vision impairing functional mobility and ADLs. Pt will benefit from cont skilled PT services during acute stay. When medically lear, PT rec dc to SNF once medically stable pending goals of care. Goals Improve bed mobility to: Minimal Assist Improve supine to sit to: Moderate Assist Improve sit to stand to: Moderate Assist Improve sit to supine to: Moderate Assist Improve gait ability to: Mod A Improve Sitting Balance to: Fair Improve Standing Balance to: Fair PT Plan of Care Frequency 1-2x/day Duration Until goals are met Discharge Recommendations Discharge Location [facility] Other TBD Transport Needs at [facility]charge [facility]
[2024-12-05 14:50] LABS: FECAL OCCULT BLOOD (FIT) POSITIVE (NEGATIVE)
[2024-12-05] MEDS: valACYclovir 500 MG TABLET PO SCH (21:25)
[2024-12-05] MEDS: PANTOPRAZOLE 40 MG VIAL IVP SCH (21:25)
[2024-12-05 21:27] LABS: HCT - HEMATOCRIT 27.9 % (37.0-47.0)
[2024-12-06 06:05] LABS: BASOPHILS % (AUTO) 0.1 %; EOSINOPHILS # (AUTO) 0.4 10^3/uL (0.0-0.7); EOSINOPHILS % (AUTO) 3.7 %; HGB - HEMOGLOBIN 7.8 g/dL (12.0-16.0); LYMPHOCYTES # (AUTO) 2.2 10^3/uL (1.5-3.5); MEAN CORPUSCULAR HEMOGLOBIN 30.8 pg (27.0-31.0); MEAN CORPUSCULAR HGB CONC 31.2 g/dL (32.0-36.0); MEAN CORPUSCULAR VOLUME 98.8 fL (81.0-99.0); MEAN PLATELET VOLUME 10.7 fL (7.9-10.8); MONOCYTES # (AUTO) 1.2 10^3/uL (0.0-1.0); MONOCYTES % (AUTO) 11.3 %; NEUTROPHILS # (AUTO) 6.1 10^3/uL (1.5-6.6); NEUTROPHILS % (AUTO) 59.9 %; NRBC ABSOLUTE COUNT (AUTO) 0.03 x10^3/uL; NUCLEATED RED BLOOD CELLS AUTO 0.3 /100WBC; PLT - PLATELET COUNT 148 10^3/uL (130-450); RED BLOOD COUNT 2.53 10^6/uL (4.20-5.40); RED CELL DISTRIBUTION WIDTH 13.2 % (12.0-15.0); WHITE BLOOD COUNT 10.2 x10^3/uL (4.8-10.8)
[2024-12-06 07:01] LABS: CALCIUM 7.6 mg/dL (8.5-10.3); CREATININE 0.7 mg/dL (0.6-1.3); POTASSIUM 3.6 mmol/L (3.5-4.5)
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
--- NOTE | 2024-12-06 13:58 | CONSULTATION NOTE ---
Chief Complaint Chief Complaint Chief Complaint: consult for gi bleed History of Present Illness History Obtained From Records Reviewed: yes History obtained from: nurses and son Exam Limitations: none History of Present Illness HPI Comment/Other: she was on aspirin. this was stopped and lovenox started yesterday. she had a few bloody bms early today. Meds/Allgy Home Medications Ambulatory Orders Medication Instructions Recorded Confirmed ibuprofen 600 mg tablet 600 mg PO Q6H PRN pain #30 tabs 04/19/14 12/02/24 Allergies Allergies Allergy/AdvReac Type Severity Reaction Status Date / Time acetaminophen (From NyQuil) Allergy Severe Unknown Verified 12/01/24 12:25 dextromethorphan (From Allergy Severe Unknown Verified 12/01/24 12:25 NyQuil) doxylamine (From NyQuil) Allergy Severe Unknown Verified 12/01/24 12:25 pseudoephedrine (From NyQuil) Allergy Severe Unknown Verified 12/01/24 12:25 [facility] Medical History Medical History (Updated 12/06/24 @ 09:27 by Yvon Jacobson MD) Personality disorder Social History Social History Smoking Status: Former smoker Level: Independent Do you feel safe in your home environment?: Yes Suffered physical, verbal, emotional, or financial abuse?: No History of Abuse: No POLST Patient has POLST: No Results Lab Results Lab results reviewed: Yes 12/06/24 05:24 12/06/24 05:24 Other Lab Results: Lab Results x24hrs 12/06/24 12/05/24 12/05/24 Range/Units 05:24 21:22 14:20 WBC 10.2 (4.8-10.8) x10^3/uL RBC 2.53 L (4.20-5.40) 10^6/uL Hgb 7.8 L 9.0 L (12.0-16.0) g/dL Hct 25.0 L 27.9 L (37.0-47.0) % MCV 98.8 (81.0-99.0) fL MCH 30.8 (27.0-31.0) pg MCHC 31.2 L (32.0-36.0) g/dL RDW 13.2 (12.0-15.0) % Plt Count 148 (130-450) 10^3/uL MPV 10.7 (7.9-10.8) fL Neut # (Auto) 6.1 (1.5-6.6) 10^3/uL Lymph # (Auto) 2.2 (1.5-3.5) 10^3/uL Ritchie # (Auto) 1.2 H (0.0-1.0) 10^3/uL Eos # (Auto) 0.4 (0.0-0.7) 10^3/uL Baso # (Auto) 0.0 (0.0-0.1) 10^3/uL Absolute Nucleated RBC 0.03 x10^3/uL Nucleated RBC % 0.3 /100WBC Sodium 148 H (135-145) mmol/L Potassium 3.6 (3.5-4.5) mmol/L Chloride 118 H (101-111) mmol/L Carbon Dioxide 26 (21-32) mmol/L Anion Gap 4.0 L (6-13) BUN 35 H (6-20) mg/dL Creatinine 0.7 (0.6-1.3) mg/dL Estimated GFR (MDRD) 80 L (>89) Glucose 98 (74-104) mg/dL Calcium 7.6 L (8.5-10.3) mg/dL Stl Occult Blood (IFOB) POSITIVE A (NEGATIVE) Exam Constitutional no apparent distress non verbal HENMT left face ecchymosis much improved Respiratory normal respiratory effort Gastrointestinal nondistended Neurology awake however minimally responsive Conclusion/Plan Problem List (1) Acute upper GI bleed: Plan: she initially had darker stool. early this am clearly a few bloody bms. more likely this is a lower gi bleed. I spoke with the son. she was cared for at in 2019 for diverticulitis. at that time she made it clear she does not want another colonoscopy. I discussed this is reasonable given rarely does endoscopy change the outcome in lower gi bleeding. the bleeding nearly always stops on its own and often the source of bleeding is not identified on colonoscopy. I have stopped the lovenox. given pts past expressed wishes and discussion with the son no plan for bowel prep and endoscopy at this time (2) Acute metabolic encephalopathy: (3) Open wound of face, complicated: Qualifiers: Encounter type: initial encounter Qualified Code(s): S01.80XA - Unspecified open wound of other part of head, initial encounter (4) Urinary tract infection: Qualifiers: Urinary tract infection type: acute cystitis Hematuria presence: w ithout hematuria Qualified Code(s): N30.00 - Acute cystitis without hematuria (5) Acute dehydration: (6) Acute kidney insufficiency: (7) Rash: (8) Closed rib fracture: Plan: agree with care. she currently is very comfortable taking nice deep breaths Qualifiers: Encounter type: initial encounter Laterality: right Rib fracture type: multiple ribs Qualified Code(s): S22.41XA - Multiple fractures of ribs, right side, initial encounter for closed fracture (9) Personality disorder: Lab Results Lab results reviewed: Yes 12/06/24 05:24 12/06/24 05:24
[2024-12-06 14:04] LABS: HCT - HEMATOCRIT 26.2 % (37.0-47.0); HGB - HEMOGLOBIN 8.2 g/dL (12.0-16.0)
[2024-12-06] MEDS: valACYclovir 500 MG TABLET PO SCH (16:02)
[2024-12-07 06:19] LABS: HGB - HEMOGLOBIN 7.5 g/dL (12.0-16.0); MEAN CORPUSCULAR HEMOGLOBIN 31.6 pg (27.0-31.0); MEAN CORPUSCULAR HGB CONC 32.6 g/dL (32.0-36.0); MEAN PLATELET VOLUME 10.1 fL (7.9-10.8); RED BLOOD COUNT 2.37 10^6/uL (4.20-5.40); RED CELL DISTRIBUTION WIDTH 13.3 % (12.0-15.0); WHITE BLOOD COUNT 9.8 x10^3/uL (4.8-10.8)
[2024-12-07 06:44] LABS: CALCIUM 7.5 mg/dL (8.5-10.3); CREATININE 0.6 mg/dL (0.6-1.3); MAGNESIUM 1.6 mg/dL (1.7-2.3); POTASSIUM 3.3 mmol/L (3.5-4.5)
[2024-12-07] MEDS ORDERED: MAGNESIUM SULFATE 1 GM/2 ML VIAL IVP STA (07:22)
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
[2024-12-07] MEDS: POTASSIUM CHLOR 10 MEQ/100 ML 10 MEQ/100 ML BAG IV SCH (08:44)
[2024-12-07] MEDS: MAGNESIUM SULFATE 1 GM in SODIUM CHLORIDE 0.9% 50 ML IV ONE (08:48)
[2024-12-07] MEDS: SODIUM CHLORIDE FLUSH 0.9% 10 ML SYRINGE IVP PRN (20:25)
[2024-12-08 06:06] LABS: HGB - HEMOGLOBIN 7.7 g/dL (12.0-16.0); MEAN CORPUSCULAR HEMOGLOBIN 31.6 pg (27.0-31.0); MEAN CORPUSCULAR HGB CONC 32.1 g/dL (32.0-36.0); MEAN CORPUSCULAR VOLUME 98.4 fL (81.0-99.0); MEAN PLATELET VOLUME 10.6 fL (7.9-10.8); RED BLOOD COUNT 2.44 10^6/uL (4.20-5.40); RED CELL DISTRIBUTION WIDTH 13.2 % (12.0-15.0); WHITE BLOOD COUNT 8.4 x10^3/uL (4.8-10.8)
[2024-12-08 06:25] LABS: CALCIUM 7.5 mg/dL (8.5-10.3); CREATININE 0.5 mg/dL (0.6-1.3); MAGNESIUM 1.7 mg/dL (1.7-2.3); POTASSIUM 3.4 mmol/L (3.5-4.5)
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
--- NOTE | 2024-12-08 11:48 | XRAY Report ---
PROCEDURE: XR Chest 1V INDICATIONS: JAY TECHNIQUE: One view of the chest was acquired. COMPARISON: None. FINDINGS: Heart size, Mediastinum, Pulmonary vasculature: Heart is normal in size and configuration. There are large calcified lymph nodes in the hilar region. Mediastinum and pulmonary vessels are otherwise norm al. Lungs: Moderate right basilar infiltrate noted Pleural spaces: No effusion or evidence of pneumothorax. Bones and soft tissues: Unremarkable. IMPRESSION: Moderate right basilar infiltrate that likely pneumonia Reviewed by: Duc Doe MD on 12/08/2024 11:47 AM PST Approved by: Duc Doe MD on 12/08/2024 11:47 AM PST Station ID: [id number]
--- NOTE | 2024-12-08 12:59 | Ultrasound Report ---
PROCEDURE: US Venous Duplex LT INDICATIONS: left upper extremity swelling - rule out DVT TECHNIQUE: Real-time imaging, as well as color and pulse Doppler interrogation, were performed of the upper extr emity veins. COMPARISON: None. FINDINGS AND IMPRESSION: Basilic vein was not well seen. Limited examination due to positioning. No evidence of left upper extremity DVT. Cephalic vein where visualized was also patent. Reviewed by: Efra Gutierrze MD on 12/08/2024 12:57 PM PST Approved by: Efra Gutierrez MD on 12/08/2024 12:57 PM PST Station ID: [id number]
[2024-12-08] MEDS: AMPICILLIN/SULBACTAM 1.5 GM in SODIUM CHLORIDE 0.9% MINIBAG 100 ML IV SCH (13:25)
--- NOTE | 2024-12-08 20:19 | MRI Report ---
PROCEDURE: MRI Brain WO INDICATIONS: AMS TECHNIQUE: Noncontrast axial T1 spin echo, axial T2 fast spin echo, sagittal and axial FLAIR, coronal T2 fast sp in echo, axial gradient echo, axial diffusion and ADC through the brain. COMPARISON: 12/01/2024 CT FINDINGS: Image quality: Diagnostic CSF spaces: Basal cisterns are patent. Lateral ventricles are symmetric. Volume: Periventricular white matter signal abnormality is commonly seen with chronic microangiopathy . Volume loss is present. These findings are moderate Brain: Infarct is seen throughout the right NICO distribution. Mild surrounding cytotoxic edema. No large hematoma. Likely old hemorrhagic blood products along the right basal ganglia and internal capsule. Craniofacial structures: Partial paranasal sinus opacities are seen. There may be small mastoid effus ions. IMPRESSION: Right NICO distribution moderate size infarction. Likely old hemorrhagic blood products in the right basal ganglia and internal capsule. Mild paranasal sinus opacities and mastoid effusions Reviewed by: Efra Gutierrez MD on 12/08/2024 8:18 PM PST Approved by: Efra Gutierrez MD on 12/08/2024 8:18 PM PST Station ID: [id number]
--- NOTE | 2024-12-08 21:43 | MISCELLANEOUS PROVIDER NOTE ---
Miscellaneous Provider Note - Note: Notified by radiology staff, MRI brain is positive for right NICO distribution moderate size infarct, likely old hemorrhagic blood products. Outside the window for any aggressive intervention, aspirin/Plavix being held due to active GI bleeding. PT/OT already ordered. Per nursing staff, no appreciable difference in neuroexam. If she experiences any worsening in her mentation, would consider more aggressive blood pressure management or possibly glucocorticoids
[2024-12-09 05:45] LABS: HCT - HEMATOCRIT 23.7 % (37.0-47.0); HGB - HEMOGLOBIN 7.6 g/dL (12.0-16.0); MEAN CORPUSCULAR HGB CONC 32.1 g/dL (32.0-36.0); MEAN CORPUSCULAR VOLUME 96.7 fL (81.0-99.0); MEAN PLATELET VOLUME 9.8 fL (7.9-10.8); RED BLOOD COUNT 2.45 10^6/uL (4.20-5.40); RED CELL DISTRIBUTION WIDTH 13.7 % (12.0-15.0); WHITE BLOOD COUNT 8.6 x10^3/uL (4.8-10.8)
[2024-12-09 06:04] LABS: CALCIUM 7.5 mg/dL (8.5-10.3); CREATININE 0.6 mg/dL (0.6-1.3); MAGNESIUM 1.5 mg/dL (1.7-2.3); POTASSIUM 3.3 mmol/L (3.5-4.5)
[2024-12-09] MEDS: AMOX/CLAV 875 MG/125 MG TABLET PO SCH (09:13)
[2024-12-09] MEDS: PANTOPRAZOLE 40 MG TABLET PO SCH (09:14)
[2024-12-09] MEDS: POTASSIUM CHLORIDE 20 MEQ/15 ML UDC PO ONE (09:18)
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
[2024-12-10 04:47] LABS: HCT - HEMATOCRIT 23.9 % (37.0-47.0); HGB - HEMOGLOBIN 7.7 g/dL (12.0-16.0); MEAN CORPUSCULAR HEMOGLOBIN 31.2 pg (27.0-31.0); MEAN CORPUSCULAR HGB CONC 32.2 g/dL (32.0-36.0); MEAN CORPUSCULAR VOLUME 96.8 fL (81.0-99.0); MEAN PLATELET VOLUME 9.8 fL (7.9-10.8); RED BLOOD COUNT 2.47 10^6/uL (4.20-5.40); WHITE BLOOD COUNT 5.6 x10^3/uL (4.8-10.8)
[2024-12-10 04:58] LABS: CALCIUM 7.5 mg/dL (8.5-10.3); CREATININE 0.6 mg/dL (0.6-1.3); MAGNESIUM 1.6 mg/dL (1.7-2.3); POTASSIUM 3.5 mmol/L (3.5-4.5)
[2024-12-10] MEDS ORDERED: MAGNESIUM SULFATE 1 GM/2 ML VIAL IVP SCH (08:00)
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
[2024-12-10] MEDS: MAGNESIUM SULFATE 2 GRAM 2 GM/50 ML BAG IV ONE (09:48)
[2024-12-10] MEDS: LANSOPRAZOLE 15 MG CAPSULE PO SCH (20:02)
[2024-12-11 05:38] LABS: HGB - HEMOGLOBIN 7.8 g/dL (12.0-16.0); MEAN CORPUSCULAR HEMOGLOBIN 30.6 pg (27.0-31.0); MEAN CORPUSCULAR HGB CONC 31.2 g/dL (32.0-36.0); RED BLOOD COUNT 2.55 10^6/uL (4.20-5.40); RED CELL DISTRIBUTION WIDTH 14.2 % (12.0-15.0); WHITE BLOOD COUNT 4.5 x10^3/uL (4.8-10.8)
[2024-12-11 06:03] LABS: CALCIUM 7.4 mg/dL (8.5-10.3); CREATININE 0.6 mg/dL (0.6-1.3); POTASSIUM 3.5 mmol/L (3.5-4.5)
[2024-12-11 08:11] VITALS: BP 120/63; TEMP 98.1; O2SAT 93
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
== END 2024-12-11 10:20 | DRG 682 ==
LOC: ED 12:16 → MS2 14:43
PROVIDERS: ADMIT Specialist; ATTEND Specialist